=== PATIENT | male | born 1980 | race Caucasian/White ===

== ENCOUNTER 2016-09-25 13:49 | Inpatient (IN) | payer MEDICARE ==
[~2016-09-25] VITALS: Ht 177.8 cm; Wt 98.9 kg
[~2016-09-25 13:49] MED LIST: AMIT50TA PO; DIPH25CA58 PO; DOCU-27 PO; LIDO35.4 TP; OXYC10TA32 PO; OXYC30TA PO
[2016-09-25 16:54] LABS: BASO # 0.1 x10^3/uL (0.0-0.2); BASO % 1 % (0-3); EOS % 0 % (0-3); HEMATOCRIT 43.5 % (39.0-53.0); HEMOGLOBIN 14.3 g/dL (13.0-17.5); LYMPH # 1.2 x10^3/uL (1.0-4.8); LYMPH % 9 % (24-48); MEAN CORPUSCULAR HEMOGLOBIN 27 pg (25-35); MEAN CORPUSCULAR HGB CONC 33 g/dL (31-37); MEAN CORPUSCULAR VOLUME 83 fL (79-100); MONO % 7 % (0-9); NEUT % 84 % (31-73); PLATELET COUNT 331 x10^3/uL (140-400); RED BLOOD COUNT 5.24 x10^6/uL (4.30-5.70); RED CELL DISTRIBUTION WIDTH 14.4 % (11.5-14.5); WHITE BLOOD COUNT 13.2 x10^3/uL (4.0-11.0)
[2016-09-25 17:03] LABS: CALCIUM 9.8 mg/dL (8.5-10.1); GFR 83.6; POTASSIUM 3.8 mmol/L (3.5-5.1)
[2016-09-25] MEDS ORDERED: HYDROMORPHONE 2 MG/ML VIAL. IVP STA ×4 (17:07→18:36)
[2016-09-25 17:09] LABS: ALBUMIN 3.9 g/dL (3.4-5.0); ALBUMIN/GLOBULIN RATIO 0.9 (1.0-1.7); TOTAL BILIRUBIN 0.4 mg/dL (0.2-1.0); TOTAL PROTEIN 8.4 g/dL (6.4-8.2)
[2016-09-25] MEDS ORDERED: ONDANSETRON PF 4 MG/2 ML VIAL. IV ONE (17:15)
[2016-09-25] MEDS: ONDANSETRON PF 4 MG/2 ML VIAL. IV PRN (20:45)
[2016-09-25] MEDS: HYDROMORPHONE 2 MG/ML VIAL. IVP PRN (20:46)
--- NOTE | 2016-09-25 21:12 | ACF ---
Admission Forms Criteria ABDOMINAL PAIN Clinical Indications for Admission to Inpatient Care (Place 'X' for any and all applicable criteria): Admission is indicated for ANY ONE of the following(1)(2)(3)(4)(5): [X]I. Inpatient admission required rather than observation care (Also use Abdominal Pain: Observation Care, as appropriate) because of ANY ONE of the following: [ ]a) Severe pain requiring acute inpatient management [ ]b) Identification of etiology/finding that requires inpatient care (eg, aortic dissection, free air) [ ]c) Absent bowel sounds with complete ileus(6) [ ]d) Suspected toxic megacolon [ ]e) Severe electrolyte abnormalities requiring inpatient care [ ]f) High fever or infection requiring inpatient admission as indicated by ANY ONE of following(7)(8): [ ] i) Appropriate outpatient or observational care antimicrobial treatment unavailable, not effective, or not feasible [ ] ii) Documented bacteremia [ ] iii) Temperature > 104.9 degrees F (oral) [ ] iv) T >103.1 F (oral) or < 96.8 F(rectal) that does not respond to all emergency treatment measures [ ]g) Signs of intestinal obstruction [B] [ ]h) Hemodynamic instability [ ]i) IV fluid to replace significant ongoing losses (greater than 3 L/m2 per day) (12)(13) [ ]j) Percutaneous or open drainage (eg, abscess, biliary tract ) procedures [ ]k) Parenteral nutrition regimen that must be implemented on inpatient basis [X]l) Other condition,treatment or monitoring requiring inpatient admission. [ ]II. Peritoneal signs present [ ]III. Surgery needed that cannot be performed on an ambulatory basis. [ ]IV. Evaluation requires patient to not eat or drink for extended period ( eg, more than 24 hours). [ ]V. Contraindications and/or Inappropriate clinical situations for Observational Care in patients with abdominal pain, when ANY ONE of the following is required: [ ]a) Thorough evaluation is required to prevent catastrophic events due to delays in diagnosing (e.g.Mesenteric ischemia) 1,3 [ ]b) Patient with severe pathology or with chronic symptoms unlikely to improve in the ED stay (3) [ ]. General contraindications and/or Inappropriate clinical situations for Observational Care in patients with abdominal pain, when ANY ONE of the following is required: [ ]a) Prediction of prolongation of LOS based on ANY ONE of the following may be considered as a contraindication for observational care 2, 3, 4, 5, 6, 7, 8, 9, 10, 11 [ ]i) Age > 65 yrs. [ ]ii) Patient arriving by ambulance [ ]iii) Patient with high acuity [ ]iv) Patient requiring vital sign monitoring [ ]v) Patient on IV medication [ ]b) Systolic blood pressures 180mmHg 3,12 [ ]c) Patient with altered mental status including delirium and other alteration of consciousness, (3) [ ]d) Patient whose discharge disposition will be to a [facility] home or rehabilitation home should not be managed in Emergency Department Observation Unit. CMS rule requires 3 days hospital stay before such placement.3,13 [ ]e) Patient with failure to thrive due to broad array of etiologies 3,16,17 [ ]f) Inability to ambulate 3,14 Extended stay beyond goal length of stay may be needed for(2)(3): [ ]a) Persistent abdominal pain with suspected intra-abdominal process [ ]b) Diagnosed condition requiring continued stay (e.g., pancreatitis, complicated diverticulitis) [ ]c) Surgery (e.g., colectomy) The original [employer] content created by [employer] has been revised. The portions of the content which have been revised are identified through the use of italic text or in bold, and [facility] has neither reviewed nor approved the modified material.All other unmodified content is copyright [employer]. Please see references footnoted in the original [employer] edition 2016 Admission Criteria Met?: Yes JAMES RAMIREZ Sep 25, 2016 21:12
--- NOTE | 2016-09-25 21:15 | PHYS DOC ---
Past Medical History Past Medical History: Other Additional Past Medical Histor: MS, RSD Past Surgical History: Other Additional Past Surgical Histo: nerve blocks, TENS, Alcohol Use: None Drug Use: None Adult General Chief Complaint Chief Complaint: ABDOMINAL PAIN HPI HPI Patient is a 36 year old female with long history of multiple sclerosis and RSD presents complaining of intermittent, crampy lower abdominal pain for the past 2 weeks. He has had some nausea and vomiting. He says that he is having bowel movements much every day. He denies diarrhea or bloody stools. Denies fever. The pain seems to get worse after meals. He also complains of severe pain in his feet radiating up his lower extremities into his lower back which he describes as feeling like "explosions". He acuity cyst to his RSD. 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 He takes OxyContin and oxycodone (30 mg every 4 hours) at home. He also complains of intermittent swelling in his lower extremities which comes and goes over the past few weeks. He denies urinary complaints, cough, chest pain, shortness of breath, or any other acute complaints. Review of Systems Review of Systems Constitutional: Denies fever or chills Eyes: Denies change in visual acuity, redness, or eye pain HENT: Denies nasal congestion or sore throat Respiratory: Denies cough or shortness of breath Cardiovascular: Denies chest pain GI: Reports lower abdominal pain, nausea, and vomiting. Denies constipation, bloody stools, or diarrhea. : Denies dysuria or hematuria Musculoskeletal: Reports severe pains in his feet reading of his legs to his low back. Integument: Denies rash or skin lesions Neurologic: Denies headache, focal weakness. Current Medications Current Medications Current Medications Medications (Trade) Dose Ordered Sig/Juan A Start Time Stop Time Status Last Admin Dose Admin Hydromorphone HCl (Dilaudid) 4 mg 1X STAT 09/25/16 18:36 09/25/16 18:38 DC 09/25/16 18:54 4 MG Ondansetron HCl (Zofran) 8 mg 1X ONCE 09/25/16 17:15 09/25/16 17:16 DC 09/25/16 17:31 8 MG Allergies Allergies Allergies Coded Allergies Type Severity Reaction Last Updated Verified butorphanol Allergy Severe Shortness of Air 08/13/16 Yes ketorolac Allergy Severe Shortness of Air 08/13/16 Yes cephalexin Allergy Intermediate 07/18/16 Yes gabapentin Allergy Intermediate 07/18/16 Yes morphine Allergy Intermediate TOLERATES OXYCODONE 07/19/16 Yes Physical Exam Physical Exam Constitutional: Well developed, well nourished, no acute distress, non-toxic appearance. HENT: Normocephalic, atraumatic, bilateral external ears normal, oropharynx moist, no oral exudates, nose normal. Eyes: PERRLA, EOMI, conjunctiva normal, no discharge. Neck: Normal range of motion, no tenderness, supple, no stridor. Cardiovascular:Heart rate regular rhythm, no murmur Lungs & Thorax: Bilateral breath sounds clear to auscultation Abdomen: Mild generalized lower abdominal tenderness palpation. No rebound, guarding, rigidity, masses, or distention. Normal bowel sounds. Skin: Warm, dry, no erythema, no rash. Back: No tenderness, no CVA tenderness. Extremities: Mild edema bilateral lower legs and feet. Tenderness to palpation of the feet and legs. No redness of the skin. Neurologic: Alert and oriented X 3, normal motor function. Psychologic: Affect normal, judgement normal, mood normal. Current Patient Data Vital Signs Vital Signs Date Time Temp Pulse Resp B/P Pulse Ox O2 Delivery O2 Flow Rate FiO2 09/25/16 18:09 96 16 154/81 95 Room Air 09/25/16 15:50 97.9 97.9 Lab Values Laboratory Tests Test 09/25/16 16:40 White Blood Count 13.2x10^3/uL (4.0-11.0) H Red Blood Count 5.24x10^6/uL (4.30-5.70) Hemoglobin 14.3g/dL (13.0-17.5) Hematocrit 43.5% (39.0-53.0) Mean Corpuscular Volume 83fL (79-100) Mean Corpuscular Hemoglobin 27pg (25-35) Mean Corpuscular Hemoglobin Concent 33g/dL (31-37) Red Cell Distribution Width 14.4% (11.5-14.5) Platelet Count 331x10^3/uL (140-400) Neutrophils (%) (Auto) 84% (31-73) H Lymphocytes (%) (Auto) 9% (24-48) L Monocytes (%) (Auto) 7% (0-9) Eosinophils (%) (Auto) 0% (0-3) Basophils (%) (Auto) 1% (0-3) Neutrophils # (Auto) 11.0x10^3uL (1.8-7.7) H Lymphocytes # (Auto) 1.2x10^3/uL (1.0-4.8) Monocytes # (Auto) 0.9x10^3/uL (0.0-1.1) Eosinophils # (Auto) 0.0x10^3/uL (0.0-0.7) Basophils # (Auto) 0.1x10^3/uL (0.0-0.2) Sodium Level 139mmol/L (136-145) Potassium Level 3.8mmol/L (3.5-5.1) Chloride Level 101mmol/L (98-107) Carbon Dioxide Level 26mmol/L (21-32) Anion Gap 12 (6-14) Blood Urea Nitrogen 12mg/dL (8-26) Creatinine 1.0mg/dL (0.7-1.3) Estimated GFR (Cockcroft-Gault) 83.6 BUN/Creatinine Ratio 12 (6-20) Glucose Level 103mg/dL (70-99) H Calcium Level 9.8mg/dL (8.5-10.1) Total Bilirubin 0.4mg/dL (0.2-1.0) Aspartate Amino Transferase (AST) 49U/L (15-37) H Alanine Aminotransferase (ALT) 92U/L (16-63) H Alkaline Phosphatase 92U/L (46-116) Total Protein 8.4g/dL (6.4-8.2) H Albumin 3.9g/dL (3.4-5.0) Albumin/Globulin Ratio 0.9 (1.0-1.7) L Lipase 83U/L (73-393) Laboratory Tests 09/25/16 16:40 Laboratory Tests 09/25/16 16:40 EKG EKG [] Radiology/Procedures Radiology/Procedures [] Course & Med Decision Making Course & Med Decision Making Pertinent Labs and Imaging studies reviewed. (See chart for details) Vitals are stable and labs are unremarkable. He does have mild leukocytosis. Abdominal exam is benign. Patient has severe pain in his legs which he attributes to his reflex sympathetic dystrophy. He is requiring multiple doses of IV Dilaudid to control his pain. I'm going to be unable to send him home as he still has severe pain after 4 mg of IV Dilaudid. I discussed this case with Dr. Monroy who agreed to admit the patient for pain control. Dragon Disclaimer Dragon Disclaimer This electronic medical record was generated, in whole or in part, using a voice recognition dictation system. Departure Departure Impression: Primary Impression: Intractable pain Disposition: ADMITTED INPATIENT Admitting Physician: Other Condition: STABLE Referrals: UNKNOWN PCP NAME (PCP) PURVI BRASHER MD Sep 25, 2016 17:12
[2016-09-25] MEDS ORDERED: ALPR0.5T PO (21:31)
[2016-09-25] MEDS ORDERED: HYDROMORPHONE 2 MG/ML VIAL. IV ONE (21:55)
[2016-09-25] MEDS ORDERED: LORAZEPAM 2 MG/ML VIAL IV ONE ×2 (21:55→22:30)
[2016-09-25] MEDS ORDERED: HYDROMORPHONE STANDARD PCA 30 ML IV PRN (22:30)
[2016-09-25 23:28] VITALS: BP 134/98
[2016-09-26] MEDS ORDERED: DIPHENHYDRAMINE HCL 25 MG CAPSULE PO PRN (00:15)
[2016-09-26] MEDS: OXYCODONE IR 30 MG TABLET. PO SCH ×3 (00:51→12:00)
--- NOTE | 2016-09-26 01:08 | HP ---
ADMIT DATE: 09/25/2016 CHIEF COMPLAINT: Intractable pain. HISTORY OF PRESENT ILLNESS: The patient is a 36-year-old gentleman with 10+ year history of multiple sclerosis as well as RSD with recurrent pain episodes. 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 He has currently pain in his lower back, more on the right typical location for him. He takes a significant amount of oxycodone and OxyContin at home. This, however, did not help with the acute onset of severe pain. He states that the pain actually at this time started earlier today. It was severe, radiating down into both legs and upsetting his neuropathy severely. He has received copious amounts of Dilaudid in the Emergency Room with insufficient control of his symptoms, requesting antianxiety medications. Other symptoms include intermittent swelling of his lower extremities. Denies any other ongoing issues. PAST MEDICAL HISTORY: RSD, MS, has had nerve blocks as well as TENS unit in the past. FAMILY HISTORY: Noncontributory. SOCIAL HISTORY: Lives with his , friend and multiple children. Never smoked, no toxic habits. ALLERGIES: Multiple including butorphanol, cephalexin, gabapentin, ketorolac, and morphine. MEDICATIONS: MAR reconciled with home medications. REVIEW OF SYSTEMS: Positive for pain and swelling as per HPI. Rest of organ system review is negative. PHYSICAL EXAMINATION: VITAL SIGNS: From today show a blood pressure of 134/98, heart rate of 100, respiratory rate at 16. He is afebrile. GENERAL: This is a obese 36-year-old gentleman, alert and oriented, in mild distress during the interview secondary to pain, occasionally shifting position. HEENT: Shows no scleral icterus. NECK: Supple. LUNGS: Clear to auscultation bilaterally. HEART: Has regular rate and rhythm. BACK: Does not reveal any musculoskeletal abnormalities, tenderness to palpation, just right to the midline in his sacrum. ABDOMEN: Has positive bowel sounds, soft, nontender. EXTREMITIES: Show trace edema in the dorsi of both feet. SKIN: Warm, soft and dry without any rash. LABORATORY DATA: CBC from today shows a WBC of 13.2, hemoglobin 14.3, platelets of 331. Chemistries with normal BUN, creatinine and electrolytes. LFTs with AST, ALT of 49 and 92. Total protein at 8.4 with an albumin of 3.9, lipase within normal limits. IMAGING: None obtained in the ER. ASSESSMENT AND PLAN: The patient is a 36-year-old gentleman with significant pain issues related to MS as well as RSD. We will start him on a Dilaudid HYBRID [employer]IC with a basal rate here in the hospital. He will get another dose of Ativan IV and will have p.o. available down the road. His narcotic demand is significant probably mainly because he is conditioned with high doses at home. We will try and get the pain under control. Because of neurological issues, we will obtain consult with Dr. Farias. He has not seen a neurologist or is on any medications for his MS either. He does have abdominal pain with diarrhea, which is a chronic issue for him. We will monitor for the time being given significantly increased narcotic doses, we will hold off on any antidiarrheals at this time. We will continue all his other home medications for insomnia. His pain medication regimen at home is somewhat paradoxical with only 10 mg of OxyContin and 30 mg of OxyIR q.4h. This should be addressed by pain clinic. The patient apparently has been seen in one previously. SKYLA ALEXIS MD DR: CRYSTAL/nts JOB#: [id number] / [id number] LUDIN
[2016-09-26] MEDS: LORAZEPAM 1 MG TABLET. PO PRN ×4 (03:01→21:07)
[2016-09-26] MEDS: HYDROMORPHONE STANDARD PCA 30 ML IV PRN ×3 (03:07→09:40)
[2016-09-26 03:24] VITALS: BP 123/74
[2016-09-26 06:05] LABS: BASO % 1 % (0-3); EOS % 2 % (0-3); HEMATOCRIT 39.8 % (39.0-53.0); LYMPH % 20 % (24-48); MEAN CORPUSCULAR HEMOGLOBIN 27 pg (25-35); MEAN CORPUSCULAR HGB CONC 33 g/dL (31-37); MEAN CORPUSCULAR VOLUME 83 fL (79-100); MONO % 13 % (0-9); NEUT % 64 % (31-73); PLATELET COUNT 312 x10^3/uL (140-400); RED CELL DISTRIBUTION WIDTH 14.8 % (11.5-14.5); WHITE BLOOD COUNT 9.9 x10^3/uL (4.0-11.0)
[2016-09-26 06:31] LABS: ALBUMIN 3.3 g/dL (3.4-5.0); ALBUMIN/GLOBULIN RATIO 0.8 (1.0-1.7); GFR 83.6; POTASSIUM 3.9 mmol/L (3.5-5.1); TOTAL BILIRUBIN 0.5 mg/dL (0.2-1.0); TOTAL PROTEIN 7.4 g/dL (6.4-8.2)
[2016-09-26 07:00] VITALS: BP 126/92
[2016-09-26] MEDS: ONDANSETRON PF 4 MG/2 ML VIAL. IV PRN ×2 (07:08→20:24)
[2016-09-26] MEDS: GABAPENTIN 300 MG CAPSULE. PO SCH ×2 (09:14→20:14)
[2016-09-26] MEDS: LIDOCAINE 5% TOPICAL OINTMENT 35GM TUBE. TP SCH ×3 (09:15→20:14)
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
--- NOTE | 2016-09-26 12:21 | RAD ---
PROCEDURE MRI lumbar spine without contrast. HISTORY Low back pain, leg pain, numbness TECHNIQUE Sagittal axial T1 and T2 and sagittal STIR images were acquired of the lumbar spine. Contrast: None COMPARISON None FINDINGS There is some motion most notable for axial T2 sequence. Lumbar vertebral body stature and AP alignment are adequate. There is mild nonspecific edema of the posterior subcutaneous fat of lower back. There is negligible edema of the anterior superior corner of L3 more likely to be reactive/degenerative in etiology. Conus terminates normally T12-L1. Not fully included, there is likely some degenerative change of the sacrum near sacroiliac joints greater on the right. L3-4: There is mild buckling of the ligamentum flavum and mild facet hypertrophic change. Spinal canal is adequate. Minimal disc osteophyte complex results in minimal narrowing of the anterior, inferior right neural foramen distally, left neural foramen adequate. L4-5: There is mild buckling of the ligamentum flavum and mild to moderate facet hypertrophic change. Spinal canal is adequate. There is very minimal narrowing of the anterior, inferior neural foramina more distally by negligible disc osteophyte complex. L5-S1: Spinal canal and neural foramina are adequate. IMPRESSION 1. There is no significant lumbar spinal stenosis or neural foramina compromise. There is minimal spondylosis. There apparently some degenerative change of the sacrum near sacroiliac joints greater on the right. Electronically signed by: Mookie Wen MD (Sep 26, 2016 12:20:12)
[2016-09-26] MEDS ORDERED: GADOBUTROL 10 MMOL/10 ML VIAL IV ONE (12:30)
--- NOTE | 2016-09-26 13:10 | RAD ---
PROCEDURE MRI brain without and with contrast. HISTORY History multiple sclerosis, blurred vision, headaches, extremity weakness TECHNIQUE Sagittal and axial T1, axial T2, axial FLAIR, axial diffusion, axial gradient echo T2, and post-contrast axial and coronal T1 weighted images were acquired of the brain. Contrast: 9 cc Gadavist COMPARISON None FINDINGS There is variable motion degradation. There is no intra-axial mass effect, midline shift, extra-axial fluid collection. There is no restricted diffusion suggestive of a recent infarct or cytotoxic edema. There is apparently a small focus of nonenhancing T2 and FLAIR hyperintense signal abnormality of the left parietal deep white matter. Otherwise allowing for motion, no convincing focal signal abnormality is identified of the brain parenchyma. There is no nodular parenchymal or leptomeningeal enhancement. Ventricles, sulci, cisterns are within normal limits in size and configuration. There is preservation of the major arterial intracranial flow voids at the skull base other than nonvisualization of the right vertebral artery flow void which may be aplastic. There is slightly dysconjugate gaze. There is patchy moderate ethmoid air cell and mild left frontal sinus mucosal thickening. There is also mild, right greater than left maxillary sinus mucosal thickening and a 2.2 centimeter right maxillary sinus mucous retention cyst. Mastoid air cells are aerated. IMPRESSION 1. There is motion degradation. There is probably a small focus of nonenhancing T2 and FLAIR hyperintense signal abnormality of the left parietal deep white matter which is nonspecific, no other convincing intracranial abnormality allowing for motion. Electronically signed by: Mookie Wen MD (Sep 26, 2016 13:10:05)
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
[2016-09-26] MEDS ORDERED: ACETAMINOPHEN 325 MG TABLET. PO PRN (13:45)
[2016-09-26] MEDS: OXYCODONE ER 40 MG TAB.ER.12H. PO SCH ×2 (14:04→20:14)
[2016-09-26] MEDS: ENOXAPARIN 40 MG/0.4 ML DISP.SYRIN. SQ SCH (14:13)
[2016-09-26 15:00] VITALS: BP 154/100
[2016-09-26] MEDS: OXYCODONE IR 30 MG TABLET. PO PRN ×2 (15:54→20:14)
[2016-09-26] MEDS: HYDROMORPHONE 2 MG/ML VIAL. IVP PRN ×2 (18:40→21:11)
[2016-09-26 19:40] VITALS: BP 123/80
[2016-09-26] MEDS: AMITRIPTYLINE HCL 50 MG TABLET PO SCH (20:14)
[2016-09-26 22:28] VITALS: BP 138/76
[2016-09-27 02:26] VITALS: BP 128/80
[2016-09-27] MEDS: LORAZEPAM 1 MG TABLET. PO PRN (06:27)
[2016-09-27] MEDS: HYDROMORPHONE 2 MG/ML VIAL. IVP PRN ×7 (06:30→22:05)
[2016-09-27] MEDS: ONDANSETRON PF 4 MG/2 ML VIAL. IV PRN (06:34)
[2016-09-27 07:00] VITALS: BP 136/92
[2016-09-27] MEDS: OXYCODONE IR 30 MG TABLET. PO PRN (07:27)
[2016-09-27] MEDS: GABAPENTIN 300 MG CAPSULE. PO SCH ×2 (08:26→20:04)
[2016-09-27] MEDS: OXYCODONE ER 40 MG TAB.ER.12H. PO SCH ×2 (08:27→20:05)
[2016-09-27] MEDS: DOCUSATE SODIUM 100 MG CAPSULE PO SCH (08:27)
[2016-09-27] MEDS: LIDOCAINE 5% TOPICAL OINTMENT 35GM TUBE. TP SCH ×3 (08:28→20:04)
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
[2016-09-27 11:41] VITALS: BP 137/94
--- NOTE | 2016-09-27 12:21 | PDOC ---
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 MRI of brain and spine done, no acute findings 2. fu with neuro, 3. increase oxycontin to 40mg bid, oxycodone 20mg q4h prn 4. PTOT dvt ppx added gabapentin as per neuro, increased dose hope to dc tmr History of Present Illness History of Present Illness severe lower ext tenderness and very sensitive to touch, slightly better today pt takes only oxycodone at home, 20mg 5-6 times per day Vitals Vitals Vital Signs Date Time Temp Pulse Resp B/P Pulse Ox O2 Delivery O2 Flow Rate FiO2 09/27/16 11:44 16 Room Air 09/27/16 11:41 97.9 106 137/94 98 97.9 Physical Exam Physical Exam severe lower ext tenderness and very sensitive to touch General: Alert, Oriented X3, Cooperative Heart: Regular rate, Normal S1 Lungs: Clear Abdomen: Normal bowel sounds, Soft Extremities: No clubbing, No cyanosis Review of Systems Review of Systems no fever, chills, sob or chest pain Assessment and Plan Assessmemt and Plan Problems Medical Problems: (1) Intractable pain Status: Acute Problems: Comment Review of Relevant I have reviewed the following items mali (where applicable) has been applied. Labs Laboratory Tests Test 09/25/16 16:40 09/26/16 05:25 White Blood Count 13.2x10^3/uL (4.0-11.0) 9.9x10^3/uL (4.0-11.0) Red Blood Count 5.24x10^6/uL (4.30-5.70) 4.80x10^6/uL (4.30-5.70) Hemoglobin 14.3g/dL (13.0-17.5) 13.0g/dL (13.0-17.5) Hematocrit 43.5% (39.0-53.0) 39.8% (39.0-53.0) Mean Corpuscular Volume 83fL (79-100) 83fL (79-100) Mean Corpuscular Hemoglobin 27pg (25-35) 27pg (25-35) Mean Corpuscular Hemoglobin Concent 33g/dL (31-37) 33g/dL (31-37) Red Cell Distribution Width 14.4% (11.5-14.5) 14.8% (11.5-14.5) Platelet Count 331x10^3/uL (140-400) 312x10^3/uL (140-400) Neutrophils (%) (Auto) 84% (31-73) 64% (31-73) Lymphocytes (%) (Auto) 9% (24-48) 20% (24-48) Monocytes (%) (Auto) 7% (0-9) 13% (0-9) Eosinophils (%) (Auto) 0% (0-3) 2% (0-3) Basophils (%) (Auto) 1% (0-3) 1% (0-3) Neutrophils # (Auto) 11.0x10^3uL (1.8-7.7) 6.3x10^3uL (1.8-7.7) Lymphocytes # (Auto) 1.2x10^3/uL (1.0-4.8) 2.0x10^3/uL (1.0-4.8) Monocytes # (Auto) 0.9x10^3/uL (0.0-1.1) 1.3x10^3/uL (0.0-1.1) Eosinophils # (Auto) 0.0x10^3/uL (0.0-0.7) 0.2x10^3/uL (0.0-0.7) Basophils # (Auto) 0.1x10^3/uL (0.0-0.2) 0.0x10^3/uL (0.0-0.2) Sodium Level 139mmol/L (136-145) 139mmol/L (136-145) Potassium Level 3.8mmol/L (3.5-5.1) 3.9mmol/L (3.5-5.1) Chloride Level 101mmol/L (98-107) 103mmol/L (98-107) Carbon Dioxide Level 26mmol/L (21-32) 28mmol/L (21-32) Anion Gap 12 (6-14) 8 (6-14) Blood Urea Nitrogen 12mg/dL (8-26) 14mg/dL (8-26) Creatinine 1.0mg/dL (0.7-1.3) 1.0mg/dL (0.7-1.3) Estimated GFR (Cockcroft-Gault) 83.6 83.6 BUN/Creatinine Ratio 12 (6-20) 14 (6-20) Glucose Level 103mg/dL (70-99) 92mg/dL (70-99) Calcium Level 9.8mg/dL (8.5-10.1) 9.0mg/dL (8.5-10.1) Total Bilirubin 0.4mg/dL (0.2-1.0) 0.5mg/dL (0.2-1.0) Aspartate Amino Transf (AST/SGOT) 49U/L (15-37) 47U/L (15-37) Alanine Aminotransferase (ALT/SGPT) 92U/L (16-63) 90U/L (16-63) Alkaline Phosphatase 92U/L (46-116) 78U/L (46-116) Total Protein 8.4g/dL (6.4-8.2) 7.4g/dL (6.4-8.2) Albumin 3.9g/dL (3.4-5.0) 3.3g/dL (3.4-5.0) Albumin/Globulin Ratio 0.9 (1.0-1.7) 0.8 (1.0-1.7) Lipase 83U/L (73-393) Medications Current Medications Hydromorphone HCl (Dilaudid) 2 mg 1X STAT IVP Last administered on 09/25/16 17:32; Start 09/25/16 at 17:07; Stop 09/25/16 at 17:09; Status DC Ondansetron HCl (Zofran) 8 mg 1X ONCE IV Last administered on 09/25/16 17:31 ; Start 09/25/16 at 17:15; Stop 09/25/16 at 17:16; Status DC Hydromorphone HCl (Dilaudid) 2 mg 1X STAT IVP Last administered on 09/25/16 18:02; Start 09/25/16 at 17:50; Stop 09/25/16 at 17:52; Status DC Hydromorphone HCl (Dilaudid) 2 mg 1X STAT IVP ; Start 09/25/16 at 18:28; Stop 09/25/16 at 18:36; Status DC Hydromorphone HCl (Dilaudid) 4 mg 1X STAT IVP Last administered on 09/25/16 18:54; Start 09/25/16 at 18:36; Stop 09/25/16 at 18:38; Status DC Ondansetron HCl (Zofran) 4 mg PRN Q8HRS PRN IV NAUSEA/VOMITING Last administered on 09/26/16 07:08; Start 09/25/16 at 18:45; Stop 09/26/16 at 18:44 ; Status DC Hydromorphone HCl (Dilaudid) 4 mg PRN Q2HRS PRN IVP PAIN Last administered on 11:44; Start 09/25/16 at 18:45 Lorazepam (Ativan) 1 mg 1X ONCE IV Last administered on 09/25/16 22:00; Start 09/25/16 at 21:55; Stop 09/25/16 at 21:56; Status DC Hydromorphone HCl (Dilaudid) 4 mg 1X ONCE IV Last administered on 09/25/16 22 :01; Start 09/25/16 at 21:55; Stop 09/25/16 at 21:56; Status DC Lorazepam (Ativan) 1 mg 1X ONCE IV Last administered on 09/25/16 22:45; Start 09/25/16 at 22:30; Stop 09/25/16 at 22:31; Status DC Lorazepam 1 mg 1 mg PRN Q4HRS PRN PO ANXIETY / AGITATION Last administered on 06:27; Start 09/25/16 at 22:30 Hydromorphone HCl (Dilaudid Standard PIPE CLEANER) 30 ml @ 0 mls/hr CONT PRN PRN IV PROTOCOL Last administered on 09/26/16 00:09; Start 09/25/16 at 22:30; Stop at 02:38; Status DC Amitriptyline HCl (Elavil) 50 mg QHS PO Last administered on 09/26/16 20:14; Start 09/26/16 at 21:00 Diphenhydramine HCl (Benadryl) 25 mg PRN QHS PRN PO INSOMNIA; Start 09/26/16 at 00:15 Lidocaine (Xylocaine) 1 maggi TID TP Last administered on 09/27/16 08:28; Start 09/26/16 at 09:00 Oxycodone HCl 30 mg 30 mg Q4HRS PO ; Start 09/26/16 at 04:00; Stop 09/26/16 at 12:25; Status DC Hydromorphone HCl (Dilaudid Standard PIPE CLEANER) 30 ml @ 0 mls/hr CONT PRN PRN IV PROTOCOL Last administered on 09/26/16 09:40; Start 09/26/16 at 02:45; Stop at 12:25; Status DC Gabapentin (Neurontin) 300 mg BID PO Last administered on 09/27/16 08:26; Start 09/26/16 at 09:00 Oxycodone HCl (Roxicodone) 30 mg PRN Q4HRS PRN PO PAIN Last administered on 07:27; Start 09/26/16 at 13:00 Oxycodone HCl (Oxycontin) 40 mg Q12HR PO Last administered on 09/27/16 08:27; Start 09/26/16 at 13:00 Gadobutrol (Gadavist) 9 mmol 1X ONCE IV Last administered on 09/26/16 12:53; Start 09/26/16 at 12:30; Stop 09/26/16 at 12:31; Status DC Docusate Sodium (Colace) 100 mg DAILY PO Last administered on 09/27/16 08:27; Start 09/27/16 at 09:00 Acetaminophen (Tylenol) 650 mg PRN Q6HRS PRN PO MILD PAIN / TEMP; Start at 13:45 Ondansetron HCl (Zofran) 4 mg PRN Q6HRS PRN IV NAUSEA/VOMITING Last administered on 09/27/16 06:34; Start 09/26/16 at 13:45 Enoxaparin Sodium (Lovenox 40mg Syringe) 40 mg Q24H SQ Last administered on 14:13; Start 09/26/16 at 14:00 Active Scripts Active Lidocaine 35.44 Gm Oint...g. 1 Maggi TP TID Amitriptyline Hcl 50 Mg Tablet 50 Mg PO QHS Benadryl (Diphenhydramine Hcl) 25 Mg Capsule 25 Mg PO PRN QHS PRN Oxycontin (Oxycodone HCl) 10 Mg Tab.er.12h 20 Mg PO Q12HR Colace (Docusate Sodium) 100 Mg Capsule 100 Mg PO DAILY Oxycodone Hcl 30 Mg Tablet 30 Mg PO Q4HRS Reported Xanax (Alprazolam) 0.5 Mg Tablet 0.5 Mg PO TID PRN Vitals/I & O Vital Sign - Last 24 Hours 09/26/16 09/26/16 09/26/16 09/26/16 14:04 15:00 15:54 18:40 Temp 97.7 97.7 Pulse 105 Resp 20 20 B/P 154/100 Pulse Ox 93 95 95 O2 Delivery Room Air Room Air Room Air Room Air 09/26/16 09/26/16 09/26/16 09/26/16 19:40 20:01 20:14 20:14 Temp 98.1 98.1 Pulse 98 Resp 18 B/P 123/80 Pulse Ox 93 95 95 O2 Delivery Room Air Room Air Room Air Room Air 09/26/16 09/26/16 09/26/16 09/26/16 21:11 21:25 21:48 22:28 Temp 97.9 97.9 Pulse 82 Resp 16 B/P 138/76 Pulse Ox 95 95 95 100 O2 Delivery Room Air Room Air 09/27/16 09/27/16 09/27/16 09/27/16 00:21 02:26 06:30 07:00 Temp 98.1 98.6 98.1 98.6 Pulse 76 94 Resp 16 20 B/P 128/80 136/92 Pulse Ox 100 98 98 98 O2 Delivery Room Air Room Air Room Air Room Air 09/27/16 09/27/16 09/27/16 09/27/16 07:27 08:00 08:27 08:27 Resp 18 16 16 O2 Delivery Room Air Room Air Room Air Room Air 09/27/16 09/27/16 09/27/16 09/27/16 09:42 10:12 11:41 11:44 Temp 97.9 97.9 Pulse 106 Resp 16 16 22 16 B/P 137/94 Pulse Ox 98 O2 Delivery Room Air Room Air Room Air Room Air Intake and Output 09/26/16 09/26/16 09/27/16 15:00 23:00 07:00 Intake Total 700 ml 500 ml Output Total 1250 ml Balance -550 ml 500 ml TRACI SANDERS MD Sep 27, 2016 12:21
[2016-09-27] MEDS: OXYCODONE IR 5 MG TABLET. PO PRN ×2 (13:17→18:38)
[2016-09-27] MEDS: ENOXAPARIN 40 MG/0.4 ML DISP.SYRIN. SQ SCH (13:18)
[2016-09-27 15:01] VITALS: BP 130/91
[2016-09-27 19:30] VITALS: BP 147/107
[2016-09-27] MEDS: AMITRIPTYLINE HCL 50 MG TABLET PO SCH (20:04)
[2016-09-27 23:23] VITALS: BP 144/87
[2016-09-28] MEDS: HYDROMORPHONE 2 MG/ML VIAL. IVP PRN ×8 (02:57→23:39)
[2016-09-28] MEDS: OXYCODONE IR 5 MG TABLET. PO PRN ×6 (02:57→23:40)
[2016-09-28] MEDS: ONDANSETRON PF 4 MG/2 ML VIAL. IV PRN (03:02)
[2016-09-28] MEDS: LORAZEPAM 1 MG TABLET. PO PRN ×3 (03:02→20:38)
[2016-09-28 03:53] VITALS: BP 135/93
[2016-09-28 07:00] VITALS: BP 147/100
--- NOTE | 2016-09-28 08:13 | PDOC ---
PROGRESS NOTES Assessment Problems Medical Problems: (1) Intractable pain Status: Acute Diagnosis of multiple sclerosis in the past, MRI does not support this diagnosis Diagnosis of complex regional pain syndrome following electrical injury Chronic pain, lumbar MRI unremarkable Keep psychogenic features in mind The told us last night that gabapentin caused seizures. The patient says that he had tremors and not seizures and he strongly wants to retry the gabapentin. Plan I discussed risks, benefits, alternatives, and side effects and will continue him on gabapentin Aim for discharge tomorrow AM Current pain management I requested records from prior neurology workup, pending No immunosuppression for the possible multiple sclerosis Subjective pain better Objective Vital Signs Date Time Temp Pulse Resp B/P Pulse Ox O2 Delivery O2 Flow Rate FiO2 09/28/16 07:00 98.0 92 20 147/100 95 Room Air 98.0 Intake and Output 09/28/16 07:00 Intake Total 240 ml Output Total 600 ml Balance -360 ml Intake Oral 240 ml Output Urine Total 600 ml PHYSICAL EXAM Alert. Oriented to time, place and person. He appears to be in less pain PERRL. EOMI. CN: no focal findings. Muscle tone: normal. Muscle strength: 5/5 in the arms, 3/5 in the legs due to splinting DTR: 2+ Plantar reflex: Flexor Gait: not examined in bed. Sensory exam: Diffuse pinprick hypesthesia. No cerebellar signs elicited. Review of Relevant I have reviewed the following items mali (where applicable) has been applied. Labs Laboratory Tests Test 09/27/16 21:08 Glucose (Fingerstick) 128mg/dL (70-99) Laboratory Tests Test 09/27/16 21:08 Glucose (Fingerstick) 128mg/dL (70-99) Medications Current Medications Hydromorphone HCl (Dilaudid) 2 mg 1X STAT IVP Last administered on 09/25/16 17:32; Start 09/25/16 at 17:07; Stop 09/25/16 at 17:09; Status DC Ondansetron HCl (Zofran) 8 mg 1X ONCE IV Last administered on 09/25/16 17:31 ; Start 09/25/16 at 17:15; Stop 09/25/16 at 17:16; Status DC Hydromorphone HCl (Dilaudid) 2 mg 1X STAT IVP Last administered on 09/25/16 18:02; Start 09/25/16 at 17:50; Stop 09/25/16 at 17:52; Status DC Hydromorphone HCl (Dilaudid) 2 mg 1X STAT IVP ; Start 09/25/16 at 18:28; Stop 09/25/16 at 18:36; Status DC Hydromorphone HCl (Dilaudid) 4 mg 1X STAT IVP Last administered on 09/25/16 18:54; Start 09/25/16 at 18:36; Stop 09/25/16 at 18:38; Status DC Ondansetron HCl (Zofran) 4 mg PRN Q8HRS PRN IV NAUSEA/VOMITING Last administered on 09/26/16 07:08; Start 09/25/16 at 18:45; Stop 09/26/16 at 18:44 ; Status DC Hydromorphone HCl (Dilaudid) 4 mg PRN Q2HRS PRN IVP PAIN Last administered on 05:14; Start 09/25/16 at 18:45 Lorazepam (Ativan) 1 mg 1X ONCE IV Last administered on 09/25/16 22:00; Start 09/25/16 at 21:55; Stop 09/25/16 at 21:56; Status DC Hydromorphone HCl (Dilaudid) 4 mg 1X ONCE IV Last administered on 09/25/16 22 :01; Start 09/25/16 at 21:55; Stop 09/25/16 at 21:56; Status DC Lorazepam (Ativan) 1 mg 1X ONCE IV Last administered on 09/25/16 22:45; Start 09/25/16 at 22:30; Stop 09/25/16 at 22:31; Status DC Lorazepam 1 mg 1 mg PRN Q4HRS PRN PO ANXIETY / AGITATION Last administered on 03:02; Start 09/25/16 at 22:30 Hydromorphone HCl (Dilaudid Standard VEHICLE MAINTENANCE SUPERVISOR) 30 ml @ 0 mls/hr CONT PRN PRN IV PROTOCOL Last administered on 09/26/16 00:09; Start 09/25/16 at 22:30; Stop at 02:38; Status DC Amitriptyline HCl (Elavil) 50 mg QHS PO Last administered on 09/27/16 20:04; Start 09/26/16 at 21:00 Diphenhydramine HCl (Benadryl) 25 mg PRN QHS PRN PO INSOMNIA; Start 09/26/16 at 00:15 Lidocaine (Xylocaine) 1 maggi TID TP Last administered on 09/27/16 20:04; Start 09/26/16 at 09:00 Oxycodone HCl 30 mg 30 mg Q4HRS PO ; Start 09/26/16 at 04:00; Stop 09/26/16 at 12:25; Status DC Hydromorphone HCl (Dilaudid Standard VEHICLE MAINTENANCE SUPERVISOR) 30 ml @ 0 mls/hr CONT PRN PRN IV PROTOCOL Last administered on 09/26/16 09:40; Start 09/26/16 at 02:45; Stop at 12:25; Status DC Gabapentin (Neurontin) 300 mg BID PO Last administered on 09/27/16 20:04; Start 09/26/16 at 09:00; Stop 09/27/16 at 21:00; Status DC Oxycodone HCl (Roxicodone) 30 mg PRN Q4HRS PRN PO PAIN Last administered on 07:27; Start 09/26/16 at 13:00; Stop 09/27/16 at 12:21; Status DC Oxycodone HCl (Oxycontin) 40 mg Q12HR PO Last administered on 09/27/16 20:05; Start 09/26/16 at 13:00 Gadobutrol (Gadavist) 9 mmol 1X ONCE IV Last administered on 09/26/16 12:53; Start 09/26/16 at 12:30; Stop 09/26/16 at 12:31; Status DC Docusate Sodium (Colace) 100 mg DAILY PO Last administered on 09/27/16 08:27; Start 09/27/16 at 09:00 Acetaminophen (Tylenol) 650 mg PRN Q6HRS PRN PO MILD PAIN / TEMP; Start at 13:45 Ondansetron HCl (Zofran) 4 mg PRN Q6HRS PRN IV NAUSEA/VOMITING Last administered on 09/28/16 03:02; Start 09/26/16 at 13:45 Enoxaparin Sodium (Lovenox 40mg Syringe) 40 mg Q24H SQ Last administered on t 13:18; Start 09/26/16 at 14:00 Oxycodone HCl (Roxicodone) 20 mg PRN Q4HRS PRN PO PAIN Last administered on 06:53; Start 09/27/16 at 12:30 Gabapentin (Neurontin) 300 mg TID PO ; Start 09/28/16 at 09:00 Active Scripts Active Lidocaine 35.44 Gm Oint...g. 1 Maggi TP TID Amitriptyline Hcl 50 Mg Tablet 50 Mg PO QHS Benadryl (Diphenhydramine Hcl) 25 Mg Capsule 25 Mg PO PRN QHS PRN Oxycontin (Oxycodone HCl) 10 Mg Tab.er.12h 20 Mg PO Q12HR Colace (Docusate Sodium) 100 Mg Capsule 100 Mg PO DAILY Oxycodone Hcl 30 Mg Tablet 30 Mg PO Q4HRS Reported Xanax (Alprazolam) 0.5 Mg Tablet 0.5 Mg PO TID PRN Vitals/I & O Vital Sign - Last 24 Hours 09/27/16 09/27/16 09/27/16 09/27/16 08:27 08:27 09:42 11:41 Temp 97.9 97.9 Pulse 106 Resp 16 16 16 22 B/P 137/94 Pulse Ox 98 O2 Delivery Room Air Room Air Room Air Room Air 09/27/16 09/27/16 09/27/16 09/27/16 11:44 12:35 13:17 14:03 Resp 16 16 16 16 O2 Delivery Room Air Room Air Room Air Room Air 09/27/16 09/27/16 09/27/16 09/27/16 14:59 15:01 15:01 15:30 Temp 98.1 97.9 98.1 97.9 Pulse 98 Resp 14 22 B/P 130/ 130/91 Pulse Ox 98 97 97 O2 Delivery Room Air Room Air 09/27/16 09/27/16 09/27/16 09/27/16 17:37 17:56 18:38 19:30 Temp 98.1 98.1 Pulse 99 Resp 18 16 16 18 B/P 147/107 Pulse Ox 96 O2 Delivery Room Air Room Air Room Air Room Air 09/27/16 09/27/16 09/27/16 09/27/16 20:00 20:05 20:05 22:05 Resp 18 18 16 O2 Delivery Room Air Room Air Room Air Room Air 09/27/16 09/28/16 09/28/16 09/28/16 23:23 02:57 02:57 03:53 Temp 98.1 98.0 98.1 98.0 Pulse 84 89 Resp 18 18 B/P 144/87 135/93 Pulse Ox 96 93 O2 Delivery Room Air Room Air Room Air Room Air 09/28/16 09/28/16 09/28/16 05:14 06:53 07:00 Temp 98.0 98.0 Pulse 92 Resp 20 B/P 147/100 Pulse Ox 95 O2 Delivery Room Air Room Air Room Air Intake and Output 09/27/16 09/27/16 09/28/16 15:00 23:00 07:00 Intake Total 0 ml 240 ml Output Total 600 ml Balance 0 ml -360 ml ADITYA TAYLOR MD Sep 28, 2016 08:13
[2016-09-28] MEDS: GABAPENTIN 300 MG CAPSULE. PO SCH ×3 (08:24→20:26)
[2016-09-28] MEDS: DOCUSATE SODIUM 100 MG CAPSULE PO SCH (08:25)
[2016-09-28] MEDS: OXYCODONE ER 40 MG TAB.ER.12H. PO SCH ×2 (08:25→20:27)
[2016-09-28] MEDS: LIDOCAINE 5% TOPICAL OINTMENT 35GM TUBE. TP SCH ×3 (08:25→20:27)
[2016-09-28 11:00] VITALS: BP 139/91
--- NOTE | 2016-09-28 13:16 | PDOC ---
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 MRI of brain and spine done, no acute findings 2. fu with neuro, who wants pt go home tmr 3. increase oxycontin to 40mg bid, oxycodone 20mg q4h prn 4. PTOT dvt ppx added gabapentin as per neuro, increased dose hope to dc tmr SW involve, if cannot go home tmr, shooting for Rehab History of Present Illness History of Present Illness severe lower ext tenderness and very sensitive to touch, slightly better today, refuse to go home pt takes only oxycodone at home, 20mg 5-6 times per day Vitals Vitals Vital Signs Date Time Temp Pulse Resp B/P Pulse Ox O2 Delivery O2 Flow Rate FiO2 09/28/16 12:21 18 95 Room Air 09/28/16 11:00 98.3 111 139/91 98.3 Physical Exam Physical Exam severe lower ext tenderness and very sensitive to touch General: Alert, Oriented X3, Cooperative Heart: Regular rate, Normal S1 Lungs: Clear Abdomen: Normal bowel sounds, Soft Extremities: No clubbing, No cyanosis Labs LABS Laboratory Tests Test 09/27/16 21:08 Glucose (Fingerstick) 128mg/dL (70-99) Review of Systems Review of Systems no fever, chills, sob or chest pain Assessment and Plan Assessmemt and Plan Problems Medical Problems: (1) Intractable pain Status: Acute Problems: Comment Review of Relevant I have reviewed the following items mali (where applicable) has been applied. Labs Laboratory Tests Test 09/27/16 21:08 Glucose (Fingerstick) 128mg/dL (70-99) Laboratory Tests Test 09/27/16 21:08 Glucose (Fingerstick) 128mg/dL (70-99) Medications Current Medications Hydromorphone HCl (Dilaudid) 2 mg 1X STAT IVP Last administered on 09/25/16 17:32; Start 09/25/16 at 17:07; Stop 09/25/16 at 17:09; Status DC Ondansetron HCl (Zofran) 8 mg 1X ONCE IV Last administered on 09/25/16 17:31 ; Start 09/25/16 at 17:15; Stop 09/25/16 at 17:16; Status DC Hydromorphone HCl (Dilaudid) 2 mg 1X STAT IVP Last administered on 09/25/16 18:02; Start 09/25/16 at 17:50; Stop 09/25/16 at 17:52; Status DC Hydromorphone HCl (Dilaudid) 2 mg 1X STAT IVP ; Start 09/25/16 at 18:28; Stop 09/25/16 at 18:36; Status DC Hydromorphone HCl (Dilaudid) 4 mg 1X STAT IVP Last administered on 09/25/16 18:54; Start 09/25/16 at 18:36; Stop 09/25/16 at 18:38; Status DC Ondansetron HCl (Zofran) 4 mg PRN Q8HRS PRN IV NAUSEA/VOMITING Last administered on 09/26/16 07:08; Start 09/25/16 at 18:45; Stop 09/26/16 at 18:44 ; Status DC Hydromorphone HCl (Dilaudid) 4 mg PRN Q2HRS PRN IVP PAIN Last administered on 11:49; Start 09/25/16 at 18:45 Lorazepam (Ativan) 1 mg 1X ONCE IV Last administered on 09/25/16 22:00; Start 09/25/16 at 21:55; Stop 09/25/16 at 21:56; Status DC Hydromorphone HCl (Dilaudid) 4 mg 1X ONCE IV Last administered on 09/25/16 22 :01; Start 09/25/16 at 21:55; Stop 09/25/16 at 21:56; Status DC Lorazepam (Ativan) 1 mg 1X ONCE IV Last administered on 09/25/16 22:45; Start 09/25/16 at 22:30; Stop 09/25/16 at 22:31; Status DC Lorazepam 1 mg 1 mg PRN Q4HRS PRN PO ANXIETY / AGITATION Last administered on 03:02; Start 09/25/16 at 22:30 Hydromorphone HCl (Dilaudid Standard BUSINESS STRATEGIST) 30 ml @ 0 mls/hr CONT PRN PRN IV PROTOCOL Last administered on 09/26/16 00:09; Start 09/25/16 at 22:30; Stop at 02:38; Status DC Amitriptyline HCl (Elavil) 50 mg QHS PO Last administered on 09/27/16 20:04; Start 09/26/16 at 21:00 Diphenhydramine HCl (Benadryl) 25 mg PRN QHS PRN PO INSOMNIA; Start 09/26/16 at 00:15 Lidocaine (Xylocaine) 1 maggi TID TP Last administered on 09/28/16 08:25; Start 09/26/16 at 09:00 Oxycodone HCl 30 mg 30 mg Q4HRS PO ; Start 09/26/16 at 04:00; Stop 09/26/16 at 12:25; Status DC Hydromorphone HCl (Dilaudid Standard BUSINESS STRATEGIST) 30 ml @ 0 mls/hr CONT PRN PRN IV PROTOCOL Last administered on 09/26/16 09:40; Start 09/26/16 at 02:45; Stop at 12:25; Status DC Gabapentin (Neurontin) 300 mg BID PO Last administered on 09/27/16 20:04; Start 09/26/16 at 09:00; Stop 09/27/16 at 21:00; Status DC Oxycodone HCl (Roxicodone) 30 mg PRN Q4HRS PRN PO PAIN Last administered on 07:27; Start 09/26/16 at 13:00; Stop 09/27/16 at 12:21; Status DC Oxycodone HCl (Oxycontin) 40 mg Q12HR PO Last administered on 09/28/16 08:25; Start 09/26/16 at 13:00 Gadobutrol (Gadavist) 9 mmol 1X ONCE IV Last administered on 09/26/16 12:53; Start 09/26/16 at 12:30; Stop 09/26/16 at 12:31; Status DC Docusate Sodium (Colace) 100 mg DAILY PO Last administered on 09/28/16 08:25; Start 09/27/16 at 09:00 Acetaminophen (Tylenol) 650 mg PRN Q6HRS PRN PO MILD PAIN / TEMP; Start at 13:45 Ondansetron HCl (Zofran) 4 mg PRN Q6HRS PRN IV NAUSEA/VOMITING Last administered on 09/28/16 03:02; Start 09/26/16 at 13:45 Enoxaparin Sodium (Lovenox 40mg Syringe) 40 mg Q24H SQ Last administered on 13:18; Start 09/26/16 at 14:00 Oxycodone HCl (Roxicodone) 20 mg PRN Q4HRS PRN PO PAIN Last administered on 11:01; Start 09/27/16 at 12:30 Gabapentin (Neurontin) 300 mg TID PO Last administered on 09/28/16 08:24; Start 09/28/16 at 09:00 Active Scripts Active Lidocaine 35.44 Gm Oint...g. 1 Maggi TP TID Amitriptyline Hcl 50 Mg Tablet 50 Mg PO QHS Benadryl (Diphenhydramine Hcl) 25 Mg Capsule 25 Mg PO PRN QHS PRN Oxycontin (Oxycodone HCl) 10 Mg Tab.er.12h 20 Mg PO Q12HR Colace (Docusate Sodium) 100 Mg Capsule 100 Mg PO DAILY Oxycodone Hcl 30 Mg Tablet 30 Mg PO Q4HRS Reported Xanax (Alprazolam) 0.5 Mg Tablet 0.5 Mg PO TID PRN Vitals/I & O Vital Sign - Last 24 Hours 09/27/16 09/27/16 09/27/16 09/27/16 13:17 14:59 15:01 15:01 Temp 98.1 97.9 98.1 97.9 Pulse 98 Resp 16 14 22 B/P 130/ 130/91 Pulse Ox 98 97 O2 Delivery Room Air Room Air Room Air 09/27/16 09/27/16 09/27/16 09/27/16 17:37 18:38 19:30 20:00 Temp 98.1 98.1 Pulse 99 Resp 18 16 18 B/P 147/107 Pulse Ox 96 O2 Delivery Room Air Room Air Room Air Room Air 09/27/16 09/27/16 09/27/16 09/27/16 20:05 20:05 22:05 23:23 Temp 98.1 98.1 Pulse 84 Resp 18 18 16 18 B/P 144/87 Pulse Ox 96 O2 Delivery Room Air Room Air Room Air Room Air 09/28/16 09/28/16 09/28/16 09/28/16 02:57 02:57 03:53 05:14 Temp 98.0 98.0 Pulse 89 Resp 18 B/P 135/93 Pulse Ox 93 O2 Delivery Room Air Room Air Room Air Room Air 09/28/16 09/28/16 09/28/16 09/28/16 06:53 07:00 08:00 08:25 Temp 98.0 98.0 Pulse 92 Resp B/P 147/100 Pulse Ox 95 95 O2 Delivery Room Air Room Air Room Air Room Air 09/28/16 09/28/16 09/28/16 09/28/16 09:22 11:00 11:01 11:49 Temp 98.3 98.3 Pulse 111 Resp 18 B/P 139/91 Pulse Ox 95 94 95 95 O2 Delivery Room Air Room Air Room Air Room Air 09/28/16 09/28/16 09/28/16 12:21 12:21 12:21 Resp 18 Pulse Ox 95 95 95 O2 Delivery Room Air Room Air Room Air Intake and Output 09/27/16 09/27/16 09/28/16 15:00 23:00 07:00 Intake Total 0 ml 240 ml Output Total 600 ml Balance 0 ml -360 ml TRACI SANDERS MD Sep 28, 2016 13:16
[2016-09-28] MEDS: ENOXAPARIN 40 MG/0.4 ML DISP.SYRIN. SQ SCH (13:51)
[2016-09-28 15:00] VITALS: BP 152/94
[2016-09-28 19:30] VITALS: BP 141/95
[2016-09-28] MEDS: AMITRIPTYLINE HCL 50 MG TABLET PO SCH (20:26)
[2016-09-28 23:00] VITALS: BP 139/82
[2016-09-29 03:29] VITALS: BP 135/79
[2016-09-29] MEDS: OXYCODONE IR 5 MG TABLET. PO PRN ×5 (04:55→22:59)
[2016-09-29] MEDS: HYDROMORPHONE 2 MG/ML VIAL. IVP PRN ×6 (04:56→21:27)
[2016-09-29] MEDS: LORAZEPAM 1 MG TABLET. PO PRN ×4 (05:05→21:27)
[2016-09-29 07:00] VITALS: BP 150/89
[2016-09-29] MEDS: GABAPENTIN 300 MG CAPSULE. PO SCH ×3 (08:41→20:30)
[2016-09-29] MEDS: DOCUSATE SODIUM 100 MG CAPSULE PO SCH (08:42)
[2016-09-29] MEDS: OXYCODONE ER 40 MG TAB.ER.12H. PO SCH ×2 (08:42→20:30)
[2016-09-29] MEDS: LIDOCAINE 5% TOPICAL OINTMENT 35GM TUBE. TP SCH ×3 (09:01→21:28)
[2016-09-29 10:43] VITALS: BP 148/94
[2016-09-29] MEDS: ENOXAPARIN 40 MG/0.4 ML DISP.SYRIN. SQ SCH (14:02)
[2016-09-29 14:46] VITALS: BP 135/89
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
[2016-09-29 19:54] VITALS: BP 138/85
[2016-09-29] MEDS: AMITRIPTYLINE HCL 50 MG TABLET PO SCH (20:29)
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
[2016-09-29 23:46] VITALS: BP 129/80
[2016-09-30 03:21] VITALS: BP 134/83
[2016-09-30] MEDS: OXYCODONE IR 5 MG TABLET. PO PRN ×5 (04:37→20:58)
[2016-09-30] MEDS: HYDROMORPHONE 2 MG/ML VIAL. IVP PRN ×6 (04:37→23:59)
[2016-09-30] MEDS: GABAPENTIN 300 MG CAPSULE. PO SCH ×3 (07:45→20:58)
[2016-09-30] MEDS: DOCUSATE SODIUM 100 MG CAPSULE PO SCH (07:45)
[2016-09-30] MEDS: OXYCODONE ER 40 MG TAB.ER.12H. PO SCH ×2 (07:45→20:58)
[2016-09-30] MEDS: LORAZEPAM 1 MG TABLET. PO PRN ×2 (07:45→22:47)
[2016-09-30 08:42] VITALS: BP 139/77
[2016-09-30] MEDS: LIDOCAINE 5% TOPICAL OINTMENT 35GM TUBE. TP SCH ×3 (08:45→20:58)
[2016-09-30 11:52] VITALS: BP 147/100
[2016-09-30] MEDS: ENOXAPARIN 40 MG/0.4 ML DISP.SYRIN. SQ SCH (12:52)
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
[2016-09-30 15:28] VITALS: BP 148/97
[2016-09-30] MEDS ORDERED: HYDROMORPHONE 2 MG/ML VIAL. IVP PRN (18:45)
[2016-09-30 19:40] VITALS: BP 163/104
[2016-09-30] MEDS: AMITRIPTYLINE HCL 50 MG TABLET PO SCH (20:58)
[2016-09-30 23:56] VITALS: BP 132/93
[2016-10-01] MEDS: OXYCODONE IR 5 MG TABLET. PO PRN ×2 (02:54→09:51)
[2016-10-01 02:56] VITALS: BP 130/85
[2016-10-01] MEDS: HYDROMORPHONE 2 MG/ML VIAL. IVP PRN (04:25)
[2016-10-01] MEDS: LORAZEPAM 1 MG TABLET. PO PRN (04:30)
[2016-10-01 07:00] VITALS: BP 148/89
[2016-10-01] MEDS: GABAPENTIN 300 MG CAPSULE. PO SCH (08:03)
[2016-10-01] MEDS: LIDOCAINE 5% TOPICAL OINTMENT 35GM TUBE. TP SCH (08:04)
[2016-10-01] MEDS: DOCUSATE SODIUM 100 MG CAPSULE PO SCH (08:04)
[2016-10-01] MEDS: OXYCODONE ER 40 MG TAB.ER.12H. PO SCH (08:04)
[2016-10-01 11:00] VITALS: BP 150/96
[2016-10-01] MEDS ORDERED: GABA-586 PO (11:49)
[2016-10-01] MEDS ORDERED: ONDANSETRON ODT 4 MG TAB.RAPDIS PO ONE (12:15)
--- NOTE | 2016-10-01 16:00 | PDOC ---
PROGRESS NOTES Assessment Assessment IMPRESSION: Price pain syndrome per history. Narcotic dependence. GI symptoms. Abdominal pain. Hx of MS, but no imagine findings at the present time. RECOMMENDATIONS/PLAN: Medical treatment. FU with PCP. PAST MEDICAL AND SURGICAL HISTORY: Please see H&P ALLERGY: Reviewed. MEDICATIONS: Refer to MAR REVIEW OF SYSTEMS: Constitutional: No malnutrition, weight loss, cachexia. Head: No traumatic brain or head injury. Skin: No edema, or rash. Ear: No infection, tinnitus. Eyes: No vision loss, or diplopia. Nose: No bleeding or purulent discharges. Hearing: No hearing decrease. Neck: No injury. Cardiac: No VT, arrhythmia Pulmonary: No COPD. GI: Abdominal pain. Urinary/genital: No dysuria, hematuria, incontinence, urinary retention. Endocrine: No cousin face, craniofacial dysmorphism, polydactyly. Skeletomuscular: No muscular atrophy, deformity. Neurological: see HP. Psychiatric: Denies drug use/abuse. Otherwise, not [id number] review of systems. PHYSICAL EXAMINATION: General appearance in no acute distress. HEENT: Normocephalic and nontraumatic. Eyes, nose, ears, and throat are unremarkable. Hearing decrease. Neck is supple. No lymphadenopathy. No bruits are heard over the carotid artery. No Crepitus. Cardiovascular: S1, S2, regular rate and rhythm. Pulmonary: Clear to auscultation bilaterally. Abdomen: Bowel sounds are positive. Extremities: No rash, lesions. mild left foot edema noted. No restriction of range of motion NEUROLOGICAL EXAMINATION: Alert. Oriented to time, place and person. PERRL. EOMI. CN: no focal findings. Muscle tone: within normal. Muscle strength: 5 DTR: 2 Plantar reflex: not examed due to wrapped feet Gait: not examined in bed. Sensory exam: no abnormal findings. No cerebellar signs elicited. F-T-N test accurate. Objective Objective Vital Signs Date Time Temp Pulse Resp B/P Pulse Ox O2 Delivery O2 Flow Rate FiO2 10/01/16 12:05 18 95 Room Air 10/01/16 11:00 97.9 93 150/96 97.9 Intake and Output 10/01/16 07:00 Intake Total 1410 ml Output Total 400 ml Balance 1010 ml Intake Oral 1410 ml Output Urine Total 400 ml Vitals Signs Vitals VS - Last 72 Hours, by Label Date Time Temp Pulse Resp B/P Pulse Ox O2 Delivery O2 Flow Rate FiO2 10/01/16 12:05 18 95 Room Air 10/01/16 11:00 97.9 93 20 150/96 95 Room Air 97.9 10/01/16 10:56 18 93 Room Air 10/01/16 09:51 18 93 Room Air 10/01/16 08:04 18 93 Room Air 10/01/16 08:00 Room Air 10/01/16 07:00 97.9 93 20 148/89 94 Room Air 97.9 10/01/16 04:55 Room Air 10/01/16 04:25 Room Air 10/01/16 02:56 97.5 95 20 130/85 93 Room Air 97.5 10/01/16 02:54 Room Air 09/30/16 23:59 Room Air 09/30/16 23:56 97.9 98 16 132/93 94 Room Air 97.9 09/30/16 21:27 Room Air 09/30/16 20:58 Room Air 09/30/16 20:58 Room Air 09/30/16 20:57 Room Air 09/30/16 20:00 Room Air 09/30/16 19:40 98.1 101 16 163/104 95 Room Air 98.1 09/30/16 17:23 16 93 09/30/16 16:53 16 93 Room Air 09/30/16 16:52 16 93 Room Air 09/30/16 15:28 97.9 114 17 148/97 93 Room Air 97.9 09/30/16 12:52 16 95 Room Air 09/30/16 12:51 16 95 Room Air 09/30/16 11:52 98.1 111 16 147/100 95 Room Air 98.1 09/30/16 08:42 98.6 87 16 139/77 95 Room Air 98.6 09/30/16 08:41 18 92 Room Air 09/30/16 08:41 16 92 Room Air 09/30/16 08:00 Room Air 09/30/16 07:45 16 92 Room Air 09/30/16 07:00 Medication Medications Current Medications Hydromorphone HCl (Dilaudid) 1 mg PRN Q4HRS PRN IVP PAIN; Start 09/30/16 at 18: 45; Stop 1/22/17 at 18:45; Status DC Hydromorphone HCl (Dilaudid) 2 mg PRN Q4HRS PRN IVP severe pain Last administered on 10/01/16 04:25; Start 09/30/16 at 23:30; Stop 10/01/16 at 13:32 ; Status DC Ondansetron HCl (Zofran Odt) 4 mg 1X ONCE PO Last administered on 10/01/16 12 :05; Start 10/01/16 at 12:15; Stop 10/01/16 at 12:16; Status DC Comment Review of Relevant I have reviewed the following items mali (where applicable) has been applied. HITESH REID MD Oct 01, 2016 16:00
== END 2016-10-01 13:15 | disposition home or self-care (01) | DRG 74 ==
LOC: ER 13:49 → 6 SOUTH 18:36
PROVIDERS: ADMIT Internal Medicine Hematology & Oncology; ATTEND Internal Medicine Hematology & Oncology
DX: G90.59 Complex regional pain syndrome I of other specified site (principal); F11.20 Opioid dependence, uncomplicated; K29.70 Gastritis, unspecified, without bleeding; G89.11 Acute pain due to trauma; G35 Multiple sclerosis; F43.10 Post-traumatic stress disorder, unspecified; G47.00 Insomnia, unspecified; G62.9 Polyneuropathy, unspecified; I25.10 Atherosclerotic heart disease of native coronary artery without angina pectoris; M06.9 Rheumatoid arthritis, unspecified; F41.9 Anxiety disorder, unspecified; Z82.49 Family history of ischemic heart disease and other diseases of the circulatory system; Z83.3 Family history of diabetes mellitus; Z88.1 Allergy status to other antibiotic agents; Z88.5 Allergy status to narcotic agent; Z88.8 Allergy status to other drugs, medicaments and biological substances
CPT/HCPCS: 36415; 70553; 72148; 80053; 82947; 83690; 85027; 96374; 96375; 96376; A9585; J1170; J1650; J2060; J2405; Q0162; 97116; 97530; 97535; 99285-25

== ENCOUNTER 2016-11-11 20:53 | Inpatient (IN) | payer MEDICARE ==
[~2016-11-11] VITALS: Ht 177.8 cm; Wt 113.4 kg
[~2016-11-11 20:53] MED LIST changes: +ALPR0.5T PO; +CYCL10TA2 PO; +GABA-586 PO; +OXYC-323 PO
[2016-11-11] MEDS: HYDROMORPHONE 2 MG/ML VIAL. IV PRN ×3 (21:27→22:31)
[2016-11-11] MEDS ORDERED: IV NORMAL SALINE 500ML BAG 500 ML IV ONE (21:45)
[2016-11-11] MEDS ORDERED: ONDANSETRON PF 4 MG/2 ML VIAL. IV ONE (21:45)
--- NOTE | 2016-11-11 22:37 | PHYS DOC ---
Past Medical History Past Medical History: Other Additional Past Medical Histor: MS, RSD Past Surgical History: Other Additional Past Surgical Histo: nerve blocks, TENS, Alcohol Use: None Drug Use: None Adult General Chief Complaint Chief Complaint: LOWER EXTREMITY SWELLING HPI HPI 28-year-old male presenting to the emergency department today with bilateral lower extremity pain that is acute on chronic. He reports having a diagnosis of reflex sympathetic dystrophy after having an electrocution event back in 1999. Since then he has been having severe pain in his feet. He currently takes 20 mg of oxycodone approximately 6 times a day. He gets his medications prescribed every week by his primary care physician. However today his pain was unrelieved by the medications. His pain is sharp severe nonradiating and in both lower legs. No associated symptoms present. He denies any numbness weakness tingling. He denies fecal or urinary incontinence or perineal paresthesias. Review of systems is negative for chest pain shortness of breath nausea vomiting. All other review of systems is negative unless otherwise noted in history of present illness. Review of Systems Review of Systems SEE ABOVE. Current Medications Current Medications Current Medications Medications (Trade) Dose Ordered Sig/Juan A Start Time Stop Time Status Last Admin Dose Admin Fentanyl Citrate (Fentanyl 2ml Vial) 50 mcg PRN Q30MIN PRN 11/11/16 22:45 Hydromorphone HCl (Dilaudid) 1 mg PRN Q30MIN PRN 11/11/16 21:30 11/11/16 22:32 DC 11/11/16 22:31 1 MG Ondansetron HCl (Zofran) 4 mg PRN Q8HRS PRN 11/11/16 22:45 11/12/16 22:44 Ondansetron HCl 4 mg 4 mg 1X ONCE 11/11/16 21:45 11/11/16 21:46 DC 11/11/16 21:26 4 MG Sodium Chloride (Iv Sodium Chloride 0.9% 500ml Bag) 500 ml @ 500 mls/hr 1X ONCE 11/11/16 21:45 11/11/16 22:44 DC 11/11/16 21:26 500 MLS/HR Allergies Allergies Allergies Coded Allergies Type Severity Reaction Last Updated Verified butorphanol Allergy Severe Shortness of Air 08/13/16 Yes ketorolac Allergy Severe Shortness of Air 08/13/16 Yes cephalexin Allergy Intermediate 07/18/16 Yes morphine Allergy Intermediate TOLERATES OXYCODONE 07/19/16 Yes Physical Exam Physical Exam Constitutional: Well developed, well nourished, non-toxic appearance. Patient appears to be in a moderate amount of pain. HENT: Normocephalic, atraumatic, bilateral external ears normal, oropharynx moist, no oral exudates, nose normal. [] Eyes: PERRLA, EOMI, conjunctiva normal, no discharge. Neck: Normal range of motion, no tenderness, supple, no stridor. [] Cardiovascular:Heart rate regular rhythm, no murmur Lungs & Thorax: Bilateral breath sounds clear to auscultation [] Abdomen: Bowel sounds normal, soft, no tenderness, no masses, no pulsatile masses. Skin: Warm, dry, no erythema, no rash. [] Back: No tenderness, no CVA tenderness. Extremities: Patient has mild swelling of the lower extremities bilaterally. No evidence of cellulitis. Hyperalgesia present. Normal sensation of the foot. Palpable pulse. 5 out of 5 strength. Upper extremities are unremarkable nontender with normal range of motion. Neurologic: Alert and oriented X 3, normal motor function, normal sensory function, no focal deficits noted. [] Psychologic: Affect normal, judgement normal, mood normal. [] Current Patient Data Vital Signs Vital Signs Date Time Temp Pulse Resp B/P Pulse Ox O2 Delivery O2 Flow Rate FiO2 11/11/16 22:31 30 97 11/11/16 21:59 Room Air 11/11/16 21:05 98.4 119 134/92 98.4 EKG EKG [] Radiology/Procedures Radiology/Procedures [] Course & Med Decision Making Course & Med Decision Making Pertinent Labs and Imaging studies reviewed. (See chart for details) [] 28-year-old male presenting to the emergency department today with pain in his legs bilaterally. Afebrile. Tachycardic likely secondary to pain. Tachypnea likely representing his pain as well. Otherwise vital signs unremarkable. Pertinent physical exam shows a neurovascular intact lower extremities bilaterally. Presentation not suggestive of cauda equina syndrome. The patient' s pain was treated in the emergency department however unfortunately his pain was not able to be controlled. He was subsequently admitted for intractable pain. Dragon Disclaimer Dragon Disclaimer This electronic medical record was generated, in whole or in part, using a voice recognition dictation system. Departure Departure Impression: Primary Impression: Reflex sympathetic dystrophy of both lower extremities Disposition: 01 HOME, SELF-CARE Condition: STABLE Referrals: UNKNOWN PCP NAME (PCP) CODIE SMITH MD Additional Instructions: Thank you for allowing us to participate in your care today. Followup with your primary care physician in 3 days if your symptoms do not improve. If you do not have a primary care provider you can ask for a list of our primary care providers. Return to the emergency department you have any new or concerning findings. This should be evaluated by the primary care physician and any necessary consulting services for continued management within a few days after discharge. Return to emergency room if you have any new or concerning symptoms including but not limited to fever, chills, nausea, vomiting, intractable pain, any new rashes, chest pain, shortness of air, uncontrolled bleeding, difficulty breathing, and/or vision loss. You may have been prescribed medication that can change in your level of thinking and ability to operate machinery. These medications include hydrocodone and Ativan. Also, Benadryl has been known to do this as well. Be sure to check with your pharmacist and ask if the medications you've prescribed can affect your level of consciousness. I recommend not operating heavy machinery or driving while on medication such as these. CHARLINE ESCAMILLA MD Nov 11, 2016 22:37
[2016-11-11] MEDS ORDERED: ONDANSETRON PF 4 MG/2 ML VIAL. IV PRN (22:45)
[2016-11-11] MEDS: FENTANYL PF 100 MCG/2 ML VIAL. IV PRN ×2 (23:03→23:37)
[2016-11-11] MEDS ORDERED: HYDROXYZINE HCL 10 MG TABLET PO PRN (23:30)
[2016-11-12] VITALS (7 sets, daily range): BP systolic 110–154; BP diastolic 68–100
[2016-11-12] MEDS: FENTANYL PF 100 MCG/2 ML VIAL. IV PRN ×13 (00:12→23:57)
--- NOTE | 2016-11-12 00:20 | ACF ---
Admission Forms Criteria PAIN MANAGEMENT [facility] Clinical Indications for Admission to Inpatient Care (Place 'X' for any and all applicable criteria): Hospital admission is needed for appropriate care of the patient because of ANY ONE of the following are present (1)(2)(3)(4)(5): [X]I. Severe pain requiring acute inpatient management as indicated by ALL of the following (2)(5)(10): [X]a) Continuous or frequent (eg, every 2 to 4 hours) parenteral analgesics required [A] [X]b) Necessity (ie, alternative approaches not effective) for analgesic regimen that can only be performed or initiated in inpatient setting [ ]II. Pain causing debilitation to the point of inability to function or be supported at any other level of care [ ]III. Severe side effects from pain medications as indicated by ANY ONE of the following (12)(13)(14)(15): [ ]a) Uncontrollable seizures [ ]b) Cardiac arrhythmias [ ]c) Severe volume depletion [ ]d) Vomiting that is uncontrollable at any other level of care [ ]e) Altered mental status ([place] coma scale score less than 13) [ ]f) Obstipation with inadequate GI function to maintain nutrition [ ]g) Dehydration that is severe or persistent The original [employer] content created by [employer] has been revised. The portions of the content which have been revised are identified through the use of italic text or in bold, and [facility] has neither reviewed nor approved the modified material. All other unmodified content is copyright [employer]. Please see references footnoted in the original [facility] edition 2016 Admission Criteria Met?: Yes TITA BETANCOURT Nov 12, 2016 00:20
[2016-11-12] MEDS ORDERED: DIPHENHYDRAMINE HCL 25 MG CAPSULE PO PRN (02:00)
[2016-11-12] MEDS: AMITRIPTYLINE HCL 50 MG TABLET PO SCH ×2 (02:26→20:32)
[2016-11-12] MEDS: GABAPENTIN 300 MG CAPSULE. PO SCH ×4 (02:26→20:32)
[2016-11-12] MEDS: CYCLOBENZAPRINE 10 MG TABLET. PO PRN ×3 (02:26→20:54)
[2016-11-12] MEDS: OXYCODONE/APAP 5/325 TABLET. PO PRN (02:26)
[2016-11-12] MEDS: OXYCODONE IR 30 MG TABLET. PO SCH ×6 (03:32→23:51)
[2016-11-12] MEDS: ALPRAZOLAM 0.5 MG TABLET PO PRN ×3 (03:32→12:03)
[2016-11-12 04:10] LABS: BASO % 1 % (0-3); EOS % 5 % (0-3); HEMATOCRIT 37.9 % (39.0-53.0); HEMOGLOBIN 12.4 g/dL (13.0-17.5); LYMPH # 1.6 x10^3/uL (1.0-4.8); LYMPH % 20 % (24-48); MEAN CORPUSCULAR HEMOGLOBIN 27 pg (25-35); MEAN CORPUSCULAR HGB CONC 33 g/dL (31-37); MEAN CORPUSCULAR VOLUME 82 fL (79-100); MONO % 11 % (0-9); NEUT % 63 % (31-73); PLATELET COUNT 319 x10^3/uL (140-400); RED BLOOD COUNT 4.62 x10^6/uL (4.30-5.70); RED CELL DISTRIBUTION WIDTH 14.8 % (11.5-14.5)
[2016-11-12 04:34] LABS: CALCIUM 9.4 mg/dL (8.5-10.1); CREATININE 0.8 mg/dL (0.7-1.3); GFR 108.2; POTASSIUM 3.9 mmol/L (3.5-5.1)
[2016-11-12] MEDS ORDERED: MAGNESIUM HYDROXIDE 2,400 MG/30 ML ORAL.SUSP. PO PRN (07:30)
[2016-11-12] MEDS: DOCUSATE SODIUM 100 MG CAPSULE PO SCH ×2 (09:00→09:22)
[2016-11-12] MEDS ORDERED: GABAPENTIN 300 MG CAPSULE. PO SCH (09:00)
[2016-11-12] MEDS: POLYETHYLENE GLYCOL 3350 17 GM PACKET. PO SCH (09:22)
[2016-11-12] MEDS: LIDOCAINE 5% TOPICAL OINTMENT 35GM TUBE. TP SCH ×3 (09:23→20:32)
[2016-11-12] MEDS: OXYCODONE ER 10 MG TAB.ER.12H. PO SCH ×2 (09:23→21:17)
--- NOTE | 2016-11-12 09:31 | PDOC1 ---
History and Physical Date of Admission Date of Admission DATE: 11/12/16 TIME: 09:24 Identification/Chief Complaint Chief Complaint RSD flare Source Source: Caregiver, Chart review, Patient History of Present Illness History of Present Illness 36 MAle, known to me, I last admitted 2015 for RSD flare, BUt had an admission here few mos ago also by my colleagues.. HE comes in with another flare, Hardly can stand, cant touch feet,. Legit pain as i see skin changes, hyperpigmentation on plantar surfaces, edema. Started to have RSD from work related injury (electrocuted accidentally yrs ago). Has been to pain clinic before. NOt wishing to see one but knows it just takes time for meds to kick in , CLaims IV fentanyl working, On his own home pain regimen at home includes oxycontin, oxycodone 20 mgs q6, gabapentin etc among others. Long nails bec unable to cut secondary to pain - nails are curling downwards already. Past Medical History Cardiovascular: CAD CENTRAL NERVOUS SYSTEM: Other Psych: Anxiety, Other Rheumatologic: Rheumatoid arthritis Past Surgical History Past Surgical History: No pertinent history Family History Family History: No Significant Social History Smoke: No ALCOHOL: none Drugs: None Current Problem List Problem List Problems Medical Problems: (1) Leg pain Status: Acute (2) Reflex sympathetic dystrophy of both lower extremities Status: Acute Problems: Current Medications Current Medications Current Medications Hydromorphone HCl (Dilaudid) 1 mg PRN Q30MIN PRN IV SEVERE PAIN Last administered on 11/11/16 22:31; Start 11/11/16 at 21:30; Stop 11/11/16 at 22:32; Status DC Ondansetron HCl 4 mg 4 mg 1X ONCE IV Last administered on 11/11/16 21:26; Start 11/11/16 at 21:45; Stop 11/11/16 at 21:46; Status DC Sodium Chloride (Iv Sodium Chloride 0.9% 500ml Bag) 500 ml @ 500 mls/hr 1X ONCE IV Last administered on 11/11/16 21:26; Start 11/11/16 at 21:45; Stop at 22:44; Status DC Fentanyl Citrate (Fentanyl 2ml Vial) 50 mcg PRN Q30MIN PRN IV SEVERE PAIN Last administered on 11/12/16 00:12; Start 11/11/16 at 22:45; Stop 11/12/16 at 00:12; Status DC Ondansetron HCl (Zofran) 4 mg PRN Q8HRS PRN IV NAUSEA/VOMITING; Start 11/11/16 at 22:45; Stop 11/12/16 at 22:44 Hydroxyzine HCl (Atarax) 10 mg PRN QHS PRN PO INSOMNIA; Start 11/11/16 at 23:30 Fentanyl Citrate (Fentanyl 2ml Vial) 50 mcg PRN Q1HR PRN IV SEVERE PAIN Last administered on 11/12/16 06:25; Start 11/12/16 at 00:15 Alprazolam (Xanax) 0.5 mg PRN TID PRN PO ANXIETY / AGITATION Last administered on 11/12/16 06:25; Start 11/12/16 at 02:00 Amitriptyline HCl (Elavil) 50 mg QHS PO ; Start 11/12/16 at 21:00; Stop 11/12/16 at 21:00; Status DC Cyclobenzaprine HCl (Flexeril) 10 mg PRN TID PRN PO MUSCLE PAIN Last administered on 11/12/16 02:26; Start 11/12/16 at 02:00 Diphenhydramine HCl (Benadryl) 25 mg PRN QHS PRN PO INSOMNIA; Start 11/12/16 at 02:00 Docusate Sodium (Colace) 100 mg DAILY PO ; Start 11/12/16 at 09:00 Gabapentin (Neurontin) 300 mg TID PO ; Start 11/12/16 at 09:00; Stop 11/12/16 at 09:00; Status DC Lidocaine (Xylocaine) 1 maggi TID TP ; Start 11/12/16 at 09:00 Oxycodone HCl (Roxicodone) 30 mg Q4HRS PO Last administered on 11/12/16 03:32; Start 11/12/16 at 04:00 Oxycodone HCl (Oxycontin) 20 mg Q12HR PO ; Start 11/12/16 at 09:00 Oxycodone/ Acetaminophen (Percocet 5/325) 1 tab PRN Q6HRS PRN PO SEVERE PAIN Last administered on 11/12/16 02:26; Start 11/12/16 at 02:00 Amitriptyline HCl (Elavil) 50 mg QHS PO Last administered on 11/12/16 02:26; Start 11/12/16 at 02:00 Gabapentin (Neurontin) 300 mg TID PO Last administered on 11/12/16 02:26; Start 11/12/16 at 02:00 Docusate Sodium (Colace) 100 mg DAILY PO ; Start 11/12/16 at 09:00 Polyethylene Glycol (miraLAX PACKET) 17 gm DAILY PO ; Start 11/12/16 at 09:00 Magnesium Hydroxide (Milk Of Magnesia) 2,400 mg PRN DAILY PRN PO CONSTIPATION; Start 11/12/16 at 07:30 Active Scripts Active Percocet 5-325 Mg Tablet (Oxycodone/Acetaminophen) 1 Each Tablet 1 Tab PO PRN Q6HRS PRN Cyclobenzaprine Hcl 10 Mg Tablet 1 Tab PO TID PRN Gabapentin 300 Mg Capsule 300 Mg PO TID Lidocaine 35.44 Gm Oint...g. 1 Maggi TP TID Amitriptyline Hcl 50 Mg Tablet 50 Mg PO QHS Benadryl (Diphenhydramine Hcl) 25 Mg Capsule 25 Mg PO PRN QHS PRN Oxycontin (Oxycodone HCl) 10 Mg Tab.er.12h 20 Mg PO Q12HR Colace (Docusate Sodium) 100 Mg Capsule 100 Mg PO DAILY Oxycodone Hcl 30 Mg Tablet 30 Mg PO Q4HRS Reported Xanax (Alprazolam) 0.5 Mg Tablet 0.5 Mg PO TID PRN Allergies Allergies: Coded Allergies: butorphanol (Verified Allergy, Severe, Shortness of Air, 08/13/16) ketorolac (Verified Allergy, Severe, Shortness of Air, 08/13/16) cephalexin (Verified Allergy, Intermediate, 07/18/16) morphine (Verified Allergy, Intermediate, TOLERATES OXYCODONE, 07/19/16) ROS General: No: Appetite, Chills, Fatigue, Malaise, Night Sweats, Other PSYCHOLOGICAL ROS: No: Anxiety, Behavioral Disorder, Concentration difficultie , Decreased libido, Depression, Disorientation, Hallucinations, Hostility, Irritablity, Memory difficulties, Mood Swings, Obsessive thoughts, Other, Physical abuse, Sexual abuse, Sleep disturbances, Suicidal ideation Eyes: No Blurry vision, No Decreased vision, No Double vision, No Dry eyes, No Excessive tearing, No Eye Pain, No Itchy Eyes, No Loss of vision, No Other, No Photophobia, No Scotomata, No Uses contacts, No Uses glasses HEENT: No: Epistaxis, Heacaches, Hearing change, Nasal congestion, Nasal discharge, Oral lesions, Other, Sinus pain, Sneezing, Snoring, Sore Throat, Tinnitus, Vertigo, Visual Changes, Vocal changes ALLERGY AND IMMUNOLOGY: No: Hives, Insect Bite Sensitivity, Itchy/Watery Eyes, Nasal Congestion, Other, Post Nasal Drip, Seasonal Allergies Hematological and Lymphatic: No: Bleeding Problems, Blood Clots, Blood Transfusions, Brusing, Night Sweats, Other, Pallor, Swollen Lymph Nodes ENDOCRINE: No: Breast Changes, Galactorrhea, Hair Pattern Changes, Hot Flashes , Malaise/lethargy, Mood Swings, Other, Palpitations, Polydipsia/polyuria, Skin Changes, Temperature Intolerance, Unexpected Weight Changes Breast: No New/Changing Breast Lumps, No Nipple changes, No Nipple discharge, No Other Cardiovascular: No Chest Pain, No Edema, No Lt Headedness, No Orthopnea, No Other, No Palpitations, No Paroxysmal Noc. Dyspnea Gastrointestinal: No Abdominal Pain, No Constipation, No Diarrhea, No Hematochezia, No Melena, No Nausea, No Other, No Vomiting Genitourinary: No , No , No , No , No , No , No , No Discharge, No Dysuria, No Flank Pain, No Frequency, No Hematuria, No Incontinence, No Other, No Pain, No Retention, No Urgency Musculoskeletal: No Gait Disturbance, No Joint Pain, No Joint Stiffness, No Joint Swelling, No Muscle Pain, No Muscular Weakness, No Other, No Pain In:, No Swelling In: Neurological: No Behavorial Changes, No Bowel/Bladder ControlChng, No Confusion , No Dizziness, No Gait Disturbance, No Headaches, No Impaired Coord/balance, No Memory Loss, No Numbness/Tingling, No Other, No Seizures, No Speech Problems , No Tremors, No Visual Changes, No Weakness Skin: Yes Acne, Yes Other (pain, swelling, balck hyperpigmentation on plantar surfaces both feet) Physical Exam General: mild distress, Other (from pain, looks very uncomfortable) HEENT: Atraumatic Lungs: Clear to auscultation Cardiovascular: S1 Breasts: Normal Abdomen: Normal bowel sounds, Soft, No tenderness, No hepatosplenomegaly, No masses Male Genitals Exam: normal genitalia, normal prostate Rectal Exam: not examined PELVIC: Nml ext genitalia Extremities: No clubbing, No cyanosis, No edema, Normal pulses, No tenderness/ swelling, Other (as above - pls) Skin: Other (as above pls) Neuro: Normal gait Psych/Mental Status: Mental status NL, Mood NL Vitals Vitals Vital Signs Date Time Temp Pulse Resp B/P Pulse Ox O2 Delivery O2 Flow Rate FiO2 11/12/16 07:00 97.4 91 20 134/95 94 Room Air 97.4 Labs Labs Laboratory Tests Test 11/12/16 03:30 White Blood Count 8.0x10^3/uL (4.0-11.0) Red Blood Count 4.62x10^6/uL (4.30-5.70) Hemoglobin 12.4g/dL (13.0-17.5) Hematocrit 37.9% (39.0-53.0) Mean Corpuscular Volume 82fL (79-100) Mean Corpuscular Hemoglobin 27pg (25-35) Mean Corpuscular Hemoglobin Concent 33g/dL (31-37) Red Cell Distribution Width 14.8% (11.5-14.5) Platelet Count 319x10^3/uL (140-400) Neutrophils (%) (Auto) 63% (31-73) Lymphocytes (%) (Auto) 20% (24-48) Monocytes (%) (Auto) 11% (0-9) Eosinophils (%) (Auto) 5% (0-3) Basophils (%) (Auto) 1% (0-3) Neutrophils # (Auto) 5.0x10^3uL (1.8-7.7) Lymphocytes # (Auto) 1.6x10^3/uL (1.0-4.8) Monocytes # (Auto) 0.9x10^3/uL (0.0-1.1) Eosinophils # (Auto) 0.4x10^3/uL (0.0-0.7) Basophils # (Auto) 0.0x10^3/uL (0.0-0.2) Sodium Level 141mmol/L (136-145) Potassium Level 3.9mmol/L (3.5-5.1) Chloride Level 104mmol/L (98-107) Carbon Dioxide Level 28mmol/L (21-32) Anion Gap 9 (6-14) Blood Urea Nitrogen 11mg/dL (8-26) Creatinine 0.8mg/dL (0.7-1.3) Estimated GFR (Cockcroft-Gault) 108.2 Glucose Level 120mg/dL (70-99) Calcium Level 9.4mg/dL (8.5-10.1) Laboratory Tests Test 11/12/16 03:30 White Blood Count 8.0x10^3/uL (4.0-11.0) Red Blood Count 4.62x10^6/uL (4.30-5.70) Hemoglobin 12.4g/dL (13.0-17.5) Hematocrit 37.9% (39.0-53.0) Mean Corpuscular Volume 82fL (79-100) Mean Corpuscular Hemoglobin 27pg (25-35) Mean Corpuscular Hemoglobin Concent 33g/dL (31-37) Red Cell Distribution Width 14.8% (11.5-14.5) Platelet Count 319x10^3/uL (140-400) Neutrophils (%) (Auto) 63% (31-73) Lymphocytes (%) (Auto) 20% (24-48) Monocytes (%) (Auto) 11% (0-9) Eosinophils (%) (Auto) 5% (0-3) Basophils (%) (Auto) 1% (0-3) Neutrophils # (Auto) 5.0x10^3uL (1.8-7.7) Lymphocytes # (Auto) 1.6x10^3/uL (1.0-4.8) Monocytes # (Auto) 0.9x10^3/uL (0.0-1.1) Eosinophils # (Auto) 0.4x10^3/uL (0.0-0.7) Basophils # (Auto) 0.0x10^3/uL (0.0-0.2) Sodium Level 141mmol/L (136-145) Potassium Level 3.9mmol/L (3.5-5.1) Chloride Level 104mmol/L (98-107) Carbon Dioxide Level 28mmol/L (21-32) Anion Gap 9 (6-14) Blood Urea Nitrogen 11mg/dL (8-26) Creatinine 0.8mg/dL (0.7-1.3) Estimated GFR (Cockcroft-Gault) 108.2 Glucose Level 120mg/dL (70-99) Calcium Level 9.4mg/dL (8.5-10.1) VTE Prophylaxis Ordered VTE Prophylaxis Devices: Yes VTE Pharmacological Prophylaxi: Yes Assessment/Plan Assessment/Plan 1. RSD flare 2. MS - stable - last MRI brain or 08/24 ok 3. HX of work related injury (electrocution) 4. Long nails PLAn: Keep current pain regimen Add stool softner Hold off pain mx consult COnsult podiatry - toe nail clipping murray RN and pt JENNIFER WILLETT MD Nov 12, 2016 09:31
[2016-11-12] MEDS ORDERED: AMITRIPTYLINE HCL 50 MG TABLET PO SCH (21:00)
[2016-11-13] MEDS: ALPRAZOLAM 0.5 MG TABLET PO PRN ×3 (01:29→17:55)
[2016-11-13] MEDS: FENTANYL PF 100 MCG/2 ML VIAL. IV PRN ×12 (01:30→19:57)
[2016-11-13 03:00] VITALS: BP 126/75
[2016-11-13] MEDS: LIDOCAINE 5% TOPICAL OINTMENT 35GM TUBE. TP SCH ×3 (03:33→20:26)
[2016-11-13] MEDS: OXYCODONE IR 30 MG TABLET. PO SCH ×5 (05:01→20:26)
[2016-11-13] MEDS: CYCLOBENZAPRINE 10 MG TABLET. PO PRN ×2 (05:18→14:30)
[2016-11-13 07:00] VITALS: BP 121/71
[2016-11-13] MEDS: POLYETHYLENE GLYCOL 3350 17 GM PACKET. PO SCH (08:14)
[2016-11-13] MEDS: GABAPENTIN 300 MG CAPSULE. PO SCH ×3 (08:14→20:26)
[2016-11-13] MEDS: DOCUSATE SODIUM 100 MG CAPSULE PO SCH ×2 (08:14→08:15)
[2016-11-13] MEDS: OXYCODONE ER 10 MG TAB.ER.12H. PO SCH ×2 (09:41→20:25)
--- NOTE | 2016-11-13 11:12 | PDOC ---
PROGRESS NOTES Chief Complaint Chief Complaint 1. RSD flare 2. MS - stable - last MRI brain or 08/24 ok 3. HX of work related injury (electrocution) 4. Long nails, s/p clipping 11/13/16 History of Present Illness History of Present Illness PAin flared again bec just had toe nail clipping by podiatry today Did discuss about pain mx, he says there is no need He knows current regimen will work - just that today's procedure was a setback PLAN: CPM PT/OT Dw pt and Vitals Vitals Vital Signs Date Time Temp Pulse Resp B/P Pulse Ox O2 Delivery O2 Flow Rate FiO2 11/13/16 09:41 Room Air 11/13/16 07:00 97.9 89 18 121/71 93 97.9 Physical Exam General: mild distress, Other (from pain, looks very uncomfortable) Lungs: Clear Abdomen: Normal bowel sounds, Soft, No tenderness, No hepatosplenomegaly, No masses Extremities: No clubbing, No cyanosis, No edema, Normal pulses, No tenderness/ swelling, Other (as above - pls) Skin: Other (as above pls) Review of Systems Review of Systems feet pain, swelling, all else is neg Assessment and Plan Assessmemt and Plan Problems Medical Problems: (1) Intractable pain Status: Acute (2) Leg pain Status: Acute (3) Reflex sympathetic dystrophy of both lower extremities Status: Acute Problems: Comment Review of Relevant I have reviewed the following items mali (where applicable) has been applied. Labs Laboratory Tests Test 11/12/16 03:30 White Blood Count 8.0x10^3/uL (4.0-11.0) Red Blood Count 4.62x10^6/uL (4.30-5.70) Hemoglobin 12.4g/dL (13.0-17.5) Hematocrit 37.9% (39.0-53.0) Mean Corpuscular Volume 82fL (79-100) Mean Corpuscular Hemoglobin 27pg (25-35) Mean Corpuscular Hemoglobin Concent 33g/dL (31-37) Red Cell Distribution Width 14.8% (11.5-14.5) Platelet Count 319x10^3/uL (140-400) Neutrophils (%) (Auto) 63% (31-73) Lymphocytes (%) (Auto) 20% (24-48) Monocytes (%) (Auto) 11% (0-9) Eosinophils (%) (Auto) 5% (0-3) Basophils (%) (Auto) 1% (0-3) Neutrophils # (Auto) 5.0x10^3uL (1.8-7.7) Lymphocytes # (Auto) 1.6x10^3/uL (1.0-4.8) Monocytes # (Auto) 0.9x10^3/uL (0.0-1.1) Eosinophils # (Auto) 0.4x10^3/uL (0.0-0.7) Basophils # (Auto) 0.0x10^3/uL (0.0-0.2) Sodium Level 141mmol/L (136-145) Potassium Level 3.9mmol/L (3.5-5.1) Chloride Level 104mmol/L (98-107) Carbon Dioxide Level 28mmol/L (21-32) Anion Gap 9 (6-14) Blood Urea Nitrogen 11mg/dL (8-26) Creatinine 0.8mg/dL (0.7-1.3) Estimated GFR (Cockcroft-Gault) 108.2 Glucose Level 120mg/dL (70-99) Calcium Level 9.4mg/dL (8.5-10.1) Medications Current Medications Hydromorphone HCl (Dilaudid) 1 mg PRN Q30MIN PRN IV SEVERE PAIN Last administered on 11/11/16 22:31; Start 11/11/16 at 21:30; Stop 11/11/16 at 22:32; Status DC Ondansetron HCl 4 mg 4 mg 1X ONCE IV Last administered on 11/11/16 21:26; Start 11/11/16 at 21:45; Stop 11/11/16 at 21:46; Status DC Sodium Chloride (Iv Sodium Chloride 0.9% 500ml Bag) 500 ml @ 500 mls/hr 1X ONCE IV Last administered on 11/11/16 21:26; Start 11/11/16 at 21:45; Stop at 22:44; Status DC Fentanyl Citrate (Fentanyl 2ml Vial) 50 mcg PRN Q30MIN PRN IV SEVERE PAIN Last administered on 11/12/16 00:12; Start 11/11/16 at 22:45; Stop 11/12/16 at 00:12; Status DC Ondansetron HCl (Zofran) 4 mg PRN Q8HRS PRN IV NAUSEA/VOMITING; Start 11/11/16 at 22:45; Stop 11/12/16 at 22:44; Status DC Hydroxyzine HCl (Atarax) 10 mg PRN QHS PRN PO INSOMNIA; Start 11/11/16 at 23:30 Fentanyl Citrate (Fentanyl 2ml Vial) 50 mcg PRN Q1HR PRN IV SEVERE PAIN Last administered on 11/13/16 09:41; Start 11/12/16 at 00:15 Alprazolam (Xanax) 0.5 mg PRN TID PRN PO ANXIETY / AGITATION Last administered on 11/13/16 09:48; Start 11/12/16 at 02:00 Amitriptyline HCl (Elavil) 50 mg QHS PO ; Start 11/12/16 at 21:00; Stop 11/12/16 at 21:00; Status DC Cyclobenzaprine HCl (Flexeril) 10 mg PRN TID PRN PO MUSCLE PAIN Last administered on 11/13/16 05:18; Start 11/12/16 at 02:00 Diphenhydramine HCl (Benadryl) 25 mg PRN QHS PRN PO INSOMNIA; Start 11/12/16 at 02:00 Docusate Sodium (Colace) 100 mg DAILY PO Last administered on 11/13/16 08:14; Start 11/12/16 at 09:00 Gabapentin (Neurontin) 300 mg TID PO ; Start 11/12/16 at 09:00; Stop 11/12/16 at 09:00; Status DC Lidocaine (Xylocaine) 1 maggi TID TP Last administered on 11/13/16 03:33; Start 11/12/16 at 09:00 Oxycodone HCl (Roxicodone) 30 mg Q4HRS PO Last administered on 11/13/16 08:14; Start 11/12/16 at 04:00 Oxycodone HCl (Oxycontin) 20 mg Q12HR PO Last administered on 11/13/16 09:41; Start 11/12/16 at 09:00 Oxycodone/ Acetaminophen (Percocet 5/325) 1 tab PRN Q6HRS PRN PO SEVERE PAIN Last administered on 11/12/16 02:26; Start 11/12/16 at 02:00 Amitriptyline HCl (Elavil) 50 mg QHS PO Last administered on 11/12/16 20:32; Start 11/12/16 at 02:00 Gabapentin (Neurontin) 300 mg TID PO Last administered on 11/13/16 08:14; Start 11/12/16 at 02:00 Docusate Sodium (Colace) 100 mg DAILY PO ; Start 11/12/16 at 09:00 Polyethylene Glycol (miraLAX PACKET) 17 gm DAILY PO Last administered on 08:14; Start 11/12/16 at 09:00 Magnesium Hydroxide (Milk Of Magnesia) 2,400 mg PRN DAILY PRN PO CONSTIPATION; Start 11/12/16 at 07:30 Active Scripts Active Percocet 5-325 Mg Tablet (Oxycodone/Acetaminophen) 1 Each Tablet 1 Tab PO PRN Q6HRS PRN Cyclobenzaprine Hcl 10 Mg Tablet 1 Tab PO TID PRN Gabapentin 300 Mg Capsule 300 Mg PO TID Lidocaine 35.44 Gm Oint...g. 1 Maggi TP TID Amitriptyline Hcl 50 Mg Tablet 50 Mg PO QHS Benadryl (Diphenhydramine Hcl) 25 Mg Capsule 25 Mg PO PRN QHS PRN Oxycontin (Oxycodone HCl) 10 Mg Tab.er.12h 20 Mg PO Q12HR Colace (Docusate Sodium) 100 Mg Capsule 100 Mg PO DAILY Oxycodone Hcl 30 Mg Tablet 30 Mg PO Q4HRS Reported Xanax (Alprazolam) 0.5 Mg Tablet 0.5 Mg PO TID PRN Vitals/I & O Vital Sign - Last 24 Hours 11/12/16 11/12/16 11/12/16 11/12/16 11:45 12:13 14:07 15:00 Temp 98.0 98.0 Pulse 105 Resp 20 B/P 123/84 Pulse Ox 92 O2 Delivery Room Air Room Air Room Air Room Air 11/12/16 11/12/16 11/12/16 11/12/16 15:30 17:18 17:20 18:47 O2 Delivery Room Air Room Air Room Air Room Air 11/12/16 11/12/16 11/12/16 11/12/16 19:00 20:32 20:47 21:17 Temp 97.5 97.5 Pulse 90 Resp 20 18 20 18 B/P 133/82 Pulse Ox 96 96 96 96 O2 Delivery Room Air Room Air Room Air Room Air 11/12/16 11/12/16 11/12/16 11/13/16 23:00 23:51 23:57 00:51 Temp 98.9 98.9 Pulse 90 Resp 18 20 20 18 B/P 110/68 Pulse Ox 92 92 92 O2 Delivery Room Air Room Air Room Air 11/13/16 11/13/16 11/13/16 11/13/16 01:17 01:30 03:00 03:28 Temp 98.8 98.8 Pulse 90 Resp 16 18 18 18 B/P 126/75 Pulse Ox 92 92 95 92 O2 Delivery Room Air Room Air Room Air Room Air 11/13/16 11/13/16 11/13/16 11/13/16 03:58 05:01 05:19 05:49 Resp 16 18 18 Pulse Ox 92 92 92 O2 Delivery Room Air Room Air Room Air 11/13/16 11/13/16 11/13/16 11/13/16 05:49 07:00 08:11 08:14 Temp 97.9 97.9 Pulse 89 Resp 18 B/P 121/71 Pulse Ox 92 93 O2 Delivery Room Air Room Air Room Air Room Air 11/13/16 11/13/16 09:41 09:41 O2 Delivery Room Air Room Air Intake and Output 11/12/16 11/12/16 11/13/16 15:00 23:00 07:00 Intake Total 600 ml 800 ml Output Total 1400 ml 1100 ml Balance -800 ml -300 ml JENNIFER WILLETT MD Nov 13, 2016 11:12
[2016-11-13 11:16] VITALS: BP 121/48
[2016-11-13 14:46] VITALS: BP 121/52
[2016-11-13 19:00] VITALS: BP 137/93
[2016-11-13] MEDS: AMITRIPTYLINE HCL 50 MG TABLET PO SCH (20:26)
[2016-11-13] MEDS: OXYCODONE/APAP 5/325 TABLET. PO PRN (20:34)
[2016-11-13 23:00] VITALS: BP 121/74
[2016-11-14] MEDS: OXYCODONE IR 30 MG TABLET. PO SCH ×6 (00:04→20:54)
[2016-11-14] MEDS: CYCLOBENZAPRINE 10 MG TABLET. PO PRN ×3 (00:04→17:58)
[2016-11-14] MEDS: FENTANYL PF 100 MCG/2 ML VIAL. IV PRN ×9 (00:10→20:56)
[2016-11-14 03:00] VITALS: BP 135/87
--- NOTE | 2016-11-14 03:19 | CONS ---
DATE OF CONSULTATION: 11/13/2016 HISTORY OF PRESENT ILLNESS: This is a 36-year-old male that has had multiple admissions. He is admitted for reflex sympathetic dystrophy flareup. 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 Due to his very severe pain syndrome, he has not been able to work on, his nails are very long and painful and this may be contributing to his discomfort in lower extremities. PAST MEDICAL HISTORY: Reflex sympathetic dystrophy of both lower extremities. MEDICATIONS: Reviewed. He takes Percocet, cyclobenzaprine, gabapentin 300 mg t.i.d., lidocaine ointment, amitriptyline, Benadryl, oxycodone, Colace and possibly Xanax. ALLERGIES: BUTORPHANOL, KETOROLAC-SHORTNESS OF BREATH, CEPHALEXIN/KEFLEX INTERMEDIATE ALLERGY, MORPHINE. PHYSICAL EXAMINATION: DERM: The patient has elongated mycotic nails of all digits. No break in the skin. No signs of infection. Decreased turgor. Skin is covered with what appeared to be lidocaine gel. Absence of hair growth. No signs of gangrene. VASCULAR: Pedal pulses are palpated, diminished. NEUROLOGIC: Severe pain due to reflex sympathetic dystrophy syndrome, unable to essentially touch him for the most part during treatment. MUSCULOSKELETAL: No bunion or hammertoe abnormalities noted. No signs of hyperkeratotic lesions. ASSESSMENT: 1. Clinical evidence of painful onychomycosis, onychocryptosis and lysis of all 10 toenails, but no signs of infection. 2. Neuropathy in the form of reflex sympathetic dystrophy with hypersensitivity. PLAN: Debridement of all mycotic nails performed using double action nail forceps and then followed by rotary drill. No hemorrhage incurred. Hopefully, this will alleviate some of his discomfort seen that they were getting to be a curly Q [place] nails growing into the skin. Thanks very much, Dr. Regalado for asking me to take care of this patient regarding his podiatric needs. Hopefully, this has given him some benefit in regarding his pain issues. KATHY DUQUE DPM DR: LUIGI/pieter JOB#: [id number] / [id number]
[2016-11-14] MEDS: ALPRAZOLAM 0.5 MG TABLET PO PRN ×2 (04:43→16:11)
[2016-11-14] MEDS: OXYCODONE/APAP 5/325 TABLET. PO PRN ×2 (04:46→16:11)
[2016-11-14 07:15] VITALS: BP 124/83
[2016-11-14] MEDS: POLYETHYLENE GLYCOL 3350 17 GM PACKET. PO SCH (08:16)
[2016-11-14] MEDS: GABAPENTIN 300 MG CAPSULE. PO SCH ×3 (08:16→20:54)
[2016-11-14] MEDS: OXYCODONE ER 10 MG TAB.ER.12H. PO SCH ×2 (08:17→20:54)
[2016-11-14] MEDS: DOCUSATE SODIUM 100 MG CAPSULE PO SCH (08:20)
[2016-11-14] MEDS: LIDOCAINE 5% TOPICAL OINTMENT 35GM TUBE. TP SCH ×3 (09:30→21:00)
--- NOTE | 2016-11-14 10:29 | PDOC ---
PROGRESS NOTES Chief Complaint Chief Complaint 1. RSD flare 2. MS - stable - last MRI brain or 08/24 ok 3. HX of work related injury (electrocution) 4. Long nails, s/p clipping 11/13/16 History of Present Illness History of Present Illness PAin flared again bec just had toe nail clipping by podiatry yesterday Did discuss about pain mx, he says there is no need He knows current regimen will work - just that today's procedure was a setback On fentanyl IV q1 50 mcgs - agreeable to do 75 mcgs q2 prn for RN purposes Dw Pt not interetsed in long acting fentanyl pain patch PLAN: Fentanyl 75 IV q2 PT/OT NOt ready for home today Dw RN Vitals Vitals Vital Signs Date Time Temp Pulse Resp B/P Pulse Ox O2 Delivery O2 Flow Rate FiO2 11/14/16 09:48 Room Air 11/14/16 07:15 97.7 91 20 124/83 95 97.7 Physical Exam General: mild distress, Other (from pain, looks very uncomfortable) Lungs: Clear Abdomen: Normal bowel sounds, Soft, No tenderness, No hepatosplenomegaly, No masses Extremities: No clubbing, No cyanosis, No edema, Normal pulses, No tenderness/ swelling, Other (as above - pls) Skin: Other (as above pls) Review of Systems Review of Systems pain feet, all else is neg Assessment and Plan Assessmemt and Plan Problems Medical Problems: (1) Intractable pain Status: Acute (2) Leg pain Status: Acute (3) Reflex sympathetic dystrophy of both lower extremities Status: Acute Problems: Comment Review of Relevant I have reviewed the following items mali (where applicable) has been applied. Medications Current Medications Hydromorphone HCl (Dilaudid) 1 mg PRN Q30MIN PRN IV SEVERE PAIN Last administered on 11/11/16 22:31; Start 11/11/16 at 21:30; Stop 11/11/16 at 22:32; Status DC Ondansetron HCl 4 mg 4 mg 1X ONCE IV Last administered on 11/11/16 21:26; Start 11/11/16 at 21:45; Stop 11/11/16 at 21:46; Status DC Sodium Chloride (Iv Sodium Chloride 0.9% 500ml Bag) 500 ml @ 500 mls/hr 1X ONCE IV Last administered on 11/11/16 21:26; Start 11/11/16 at 21:45; Stop at 22:44; Status DC Fentanyl Citrate (Fentanyl 2ml Vial) 50 mcg PRN Q30MIN PRN IV SEVERE PAIN Last administered on 11/12/16 00:12; Start 11/11/16 at 22:45; Stop 11/12/16 at 00:12; Status DC Ondansetron HCl (Zofran) 4 mg PRN Q8HRS PRN IV NAUSEA/VOMITING; Start 11/11/16 at 22:45; Stop 11/12/16 at 22:44; Status DC Hydroxyzine HCl (Atarax) 10 mg PRN QHS PRN PO INSOMNIA; Start 11/11/16 at 23:30 Fentanyl Citrate (Fentanyl 2ml Vial) 50 mcg PRN Q1HR PRN IV SEVERE PAIN Last administered on 11/14/16 09:48; Start 11/12/16 at 00:15 Alprazolam (Xanax) 0.5 mg PRN TID PRN PO ANXIETY / AGITATION Last administered on 11/14/16 04:43; Start 11/12/16 at 02:00 Amitriptyline HCl (Elavil) 50 mg QHS PO ; Start 11/12/16 at 21:00; Stop 11/12/16 at 21:00; Status DC Cyclobenzaprine HCl (Flexeril) 10 mg PRN TID PRN PO MUSCLE PAIN Last administered on 11/14/16 08:16; Start 11/12/16 at 02:00 Diphenhydramine HCl (Benadryl) 25 mg PRN QHS PRN PO INSOMNIA; Start 11/12/16 at 02:00 Docusate Sodium (Colace) 100 mg DAILY PO Last administered on 11/14/16 08:20; Start 11/12/16 at 09:00 Gabapentin (Neurontin) 300 mg TID PO ; Start 11/12/16 at 09:00; Stop 11/12/16 at 09:00; Status DC Lidocaine (Xylocaine) 1 maggi TID TP Last administered on 11/14/16 09:30; Start 11/12/16 at 09:00 Oxycodone HCl (Roxicodone) 30 mg Q4HRS PO Last administered on 11/14/16 08:16; Start 11/12/16 at 04:00 Oxycodone HCl (Oxycontin) 20 mg Q12HR PO Last administered on 11/14/16 08:17; Start 11/12/16 at 09:00 Oxycodone/ Acetaminophen (Percocet 5/325) 1 tab PRN Q6HRS PRN PO SEVERE PAIN Last administered on 11/14/16 04:46; Start 11/12/16 at 02:00 Amitriptyline HCl (Elavil) 50 mg QHS PO Last administered on 11/13/16 20:26; Start 11/12/16 at 02:00 Gabapentin (Neurontin) 300 mg TID PO Last administered on 11/14/16 08:16; Start 11/12/16 at 02:00 Docusate Sodium (Colace) 100 mg DAILY PO ; Start 11/12/16 at 09:00; Stop 11/13/16 at 16:17; Status DC Polyethylene Glycol (miraLAX PACKET) 17 gm DAILY PO Last administered on 08:16; Start 11/12/16 at 09:00 Magnesium Hydroxide (Milk Of Magnesia) 2,400 mg PRN DAILY PRN PO CONSTIPATION; Start 11/12/16 at 07:30 Active Scripts Active Percocet 5-325 Mg Tablet (Oxycodone/Acetaminophen) 1 Each Tablet 1 Tab PO PRN Q6HRS PRN Cyclobenzaprine Hcl 10 Mg Tablet 1 Tab PO TID PRN Gabapentin 300 Mg Capsule 300 Mg PO TID Lidocaine 35.44 Gm Oint...g. 1 Maggi TP TID Amitriptyline Hcl 50 Mg Tablet 50 Mg PO QHS Benadryl (Diphenhydramine Hcl) 25 Mg Capsule 25 Mg PO PRN QHS PRN Oxycontin (Oxycodone HCl) 10 Mg Tab.er.12h 20 Mg PO Q12HR Colace (Docusate Sodium) 100 Mg Capsule 100 Mg PO DAILY Oxycodone Hcl 30 Mg Tablet 30 Mg PO Q4HRS Reported Xanax (Alprazolam) 0.5 Mg Tablet 0.5 Mg PO TID PRN Vitals/I & O Vital Sign - Last 24 Hours 11/13/16 11/13/16 11/13/16 11/13/16 11:16 12:03 12:03 13:15 Temp 97.9 97.9 Pulse 103 Resp 18 B/P 121/48 Pulse Ox 94 O2 Delivery Room Air Room Air Room Air 11/13/16 11/13/16 11/13/16 11/13/16 14:31 14:46 16:13 16:47 Temp 97.9 97.9 Pulse 99 Resp 18 B/P 121/52 Pulse Ox 94 94 O2 Delivery Room Air Room Air Room Air Room Air 11/13/16 11/13/16 11/13/16 11/13/16 17:56 19:00 19:57 20:00 Temp 98.0 98.0 Pulse 114 Resp 18 B/P 137/93 Pulse Ox 93 94 O2 Delivery Room Air Room Air Room Air 11/13/16 11/13/16 11/13/16 11/13/16 20:25 20:26 20:34 21:34 Pulse Ox 94 94 94 94 O2 Delivery Room Air Room Air Room Air Room Air 11/13/16 11/14/16 11/14/16 11/14/16 23:00 00:04 00:10 00:25 Temp 98.4 98.4 Pulse 91 Resp 20 B/P 121/74 Pulse Ox 94 94 94 94 O2 Delivery Room Air Room Air Room Air 11/14/16 11/14/16 11/14/16 11/14/16 03:00 04:01 04:01 04:31 Temp 98.2 98.2 Pulse 106 Resp 20 B/P 135/87 Pulse Ox 91 94 94 94 O2 Delivery Room Air Room Air Room Air 11/14/16 11/14/16 11/14/16 11/14/16 04:46 05:01 06:21 07:15 Temp 97.7 97.7 Pulse 91 Resp 20 B/P 124/83 Pulse Ox 94 94 94 95 O2 Delivery Room Air Room Air Room Air 11/14/16 11/14/16 11/14/16 11/14/16 08:16 08:17 08:17 09:48 O2 Delivery Room Air Room Air Room Air Room Air 11/14/16 11/14/16 09:48 09:48 O2 Delivery Room Air Room Air Intake and Output 11/13/16 11/13/16 11/14/16 15:00 23:00 07:00 Intake Total 240 ml 920 ml 750 ml Output Total 1520 ml 800 ml 800 ml Balance -1280 ml 120 ml -50 ml JENNIFER WILLETT MD Nov 14, 2016 10:29
[2016-11-14 11:09] VITALS: BP 147/69
[2016-11-14 15:15] VITALS: BP 123/63
[2016-11-14 19:00] VITALS: BP 125/81
[2016-11-14] MEDS: AMITRIPTYLINE HCL 50 MG TABLET PO SCH (20:54)
[2016-11-15] MEDS: OXYCODONE IR 30 MG TABLET. PO SCH ×6 (01:01→20:09)
[2016-11-15] MEDS: FENTANYL PF 100 MCG/2 ML VIAL. IV PRN ×10 (01:01→22:46)
[2016-11-15 07:00] VITALS: BP 143/95
[2016-11-15] MEDS: GABAPENTIN 300 MG CAPSULE. PO SCH ×3 (08:30→20:10)
[2016-11-15] MEDS: DOCUSATE SODIUM 100 MG CAPSULE PO SCH (08:30)
[2016-11-15] MEDS: ALPRAZOLAM 0.5 MG TABLET PO PRN ×3 (08:30→20:38)
[2016-11-15] MEDS: CYCLOBENZAPRINE 10 MG TABLET. PO PRN ×2 (08:30→14:05)
[2016-11-15] MEDS: OXYCODONE ER 10 MG TAB.ER.12H. PO SCH ×2 (08:31→20:10)
[2016-11-15] MEDS: POLYETHYLENE GLYCOL 3350 17 GM PACKET. PO SCH (08:32)
[2016-11-15] MEDS: LIDOCAINE 5% TOPICAL OINTMENT 35GM TUBE. TP SCH ×3 (08:32→20:37)
[2016-11-15 10:44] VITALS: BP 131/87
[2016-11-15] MEDS: OXYCODONE/APAP 5/325 TABLET. PO PRN (12:13)
--- NOTE | 2016-11-15 13:16 | PDOC ---
PROGRESS NOTES Chief Complaint Chief Complaint 1. RSD flare 2. MS - stable - last MRI brain or 08/24 ok 3. HX of work related injury (electrocution) 4. 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 Refuses to inc oxycontin dose or start fentanyl patch We discussed about going home chandra - he agrees Worked with PT today says she just needs instructions form PT, otherwi PLAN: CPM HOme chandra Will need rx chandra for gabapentin and xanax Vitals Vitals Vital Signs Date Time Temp Pulse Resp B/P Pulse Ox O2 Delivery O2 Flow Rate FiO2 11/15/16 12:36 20 93 Room Air 11/15/16 10:44 97.8 109 131/87 97.8 Physical Exam General: mild distress, Other (from pain, looks very uncomfortable) Lungs: Clear Abdomen: Normal bowel sounds, Soft, No tenderness, No hepatosplenomegaly, No masses Extremities: No clubbing, No cyanosis, No edema, Normal pulses, No tenderness/ swelling, Other (as above - pls) Skin: Other (as above pls) Review of Systems Review of Systems pain, swelling, all else is neg Assessment and Plan Assessmemt and Plan Problems Medical Problems: (1) Intractable pain Status: Acute (2) Leg pain Status: Acute (3) Reflex sympathetic dystrophy of both lower extremities Status: Acute Problems: Comment Review of Relevant I have reviewed the following items mali (where applicable) has been applied. Medications Current Medications Hydromorphone HCl (Dilaudid) 1 mg PRN Q30MIN PRN IV SEVERE PAIN Last administered on 11/11/16 22:31; Start 11/11/16 at 21:30; Stop 11/11/16 at 22:32; Status DC Ondansetron HCl 4 mg 4 mg 1X ONCE IV Last administered on 11/11/16 21:26; Start 11/11/16 at 21:45; Stop 11/11/16 at 21:46; Status DC Sodium Chloride (Iv Sodium Chloride 0.9% 500ml Bag) 500 ml @ 500 mls/hr 1X ONCE IV Last administered on 11/11/16 21:26; Start 11/11/16 at 21:45; Stop at 22:44; Status DC Fentanyl Citrate (Fentanyl 2ml Vial) 50 mcg PRN Q30MIN PRN IV SEVERE PAIN Last administered on 11/12/16 00:12; Start 11/11/16 at 22:45; Stop 11/12/16 at 00:12; Status DC Ondansetron HCl (Zofran) 4 mg PRN Q8HRS PRN IV NAUSEA/VOMITING; Start 11/11/16 at 22:45; Stop 11/12/16 at 22:44; Status DC Hydroxyzine HCl (Atarax) 10 mg PRN QHS PRN PO INSOMNIA; Start 11/11/16 at 23:30 Fentanyl Citrate (Fentanyl 2ml Vial) 50 mcg PRN Q1HR PRN IV SEVERE PAIN Last administered on 11/14/16 09:48; Start 11/12/16 at 00:15; Stop 11/14/16 at 10:28; Status DC Alprazolam (Xanax) 0.5 mg PRN TID PRN PO ANXIETY / AGITATION Last administered on 11/15/16 08:30; Start 11/12/16 at 02:00 Amitriptyline HCl (Elavil) 50 mg QHS PO ; Start 11/12/16 at 21:00; Stop 11/12/16 at 21:00; Status DC Cyclobenzaprine HCl (Flexeril) 10 mg PRN TID PRN PO MUSCLE PAIN Last administered on 11/15/16 08:30; Start 11/12/16 at 02:00 Diphenhydramine HCl (Benadryl) 25 mg PRN QHS PRN PO INSOMNIA; Start 11/12/16 at 02:00 Docusate Sodium (Colace) 100 mg DAILY PO Last administered on 11/15/16 08:30; Start 11/12/16 at 09:00 Gabapentin (Neurontin) 300 mg TID PO ; Start 11/12/16 at 09:00; Stop 11/12/16 at 09:00; Status DC Lidocaine (Xylocaine) 1 maggi TID TP Last administered on 11/15/16 08:32; Start 11/12/16 at 09:00 Oxycodone HCl (Roxicodone) 30 mg Q4HRS PO Last administered on 11/15/16 12:13; Start 11/12/16 at 04:00 Oxycodone HCl (Oxycontin) 20 mg Q12HR PO Last administered on 11/15/16 08:31; Start 11/12/16 at 09:00 Oxycodone/ Acetaminophen (Percocet 5/325) 1 tab PRN Q6HRS PRN PO SEVERE PAIN Last administered on 11/15/16 12:13; Start 11/12/16 at 02:00 Amitriptyline HCl (Elavil) 50 mg QHS PO Last administered on 11/14/16 20:54; Start 11/12/16 at 02:00 Gabapentin (Neurontin) 300 mg TID PO Last administered on 11/15/16 08:30; Start 11/12/16 at 02:00 Docusate Sodium (Colace) 100 mg DAILY PO ; Start 11/12/16 at 09:00; Stop 11/13/16 at 16:17; Status DC Polyethylene Glycol (miraLAX PACKET) 17 gm DAILY PO Last administered on 08:16; Start 11/12/16 at 09:00 Magnesium Hydroxide (Milk Of Magnesia) 2,400 mg PRN DAILY PRN PO CONSTIPATION; Start 11/12/16 at 07:30 Fentanyl Citrate (Fentanyl 2ml Vial) 75 mcg PRN Q2HR PRN IV SEVERE PAIN Last administered on 11/15/16 12:36; Start 11/14/16 at 10:21 Active Scripts Active Percocet 5-325 Mg Tablet (Oxycodone/Acetaminophen) 1 Each Tablet 1 Tab PO PRN Q6HRS PRN Cyclobenzaprine Hcl 10 Mg Tablet 1 Tab PO TID PRN Gabapentin 300 Mg Capsule 300 Mg PO TID Lidocaine 35.44 Gm Oint...g. 1 Maggi TP TID Amitriptyline Hcl 50 Mg Tablet 50 Mg PO QHS Benadryl (Diphenhydramine Hcl) 25 Mg Capsule 25 Mg PO PRN QHS PRN Oxycontin (Oxycodone HCl) 10 Mg Tab.er.12h 20 Mg PO Q12HR Colace (Docusate Sodium) 100 Mg Capsule 100 Mg PO DAILY Oxycodone Hcl 30 Mg Tablet 30 Mg PO Q4HRS Reported Xanax (Alprazolam) 0.5 Mg Tablet 0.5 Mg PO TID PRN Vitals/I & O Vital Sign - Last 24 Hours 11/14/16 11/14/16 11/14/16 11/14/16 15:15 15:28 16:11 16:12 Temp 100.9 100.9 Pulse 94 Resp 20 B/P 123/63 Pulse Ox 97 96 O2 Delivery Room Air Room Air Room Air Room Air 11/14/16 11/14/16 11/14/16 11/14/16 17:22 17:59 19:00 20:00 Temp 97.9 97.9 Pulse 109 Resp 18 B/P 125/81 Pulse Ox 94 O2 Delivery Room Air Room Air Room Air Room Air 11/14/16 11/14/16 11/14/16 11/15/16 20:54 20:54 20:56 01:01 Pulse Ox 94 94 94 94 O2 Delivery Room Air Room Air Room Air Room Air 11/15/16 11/15/16 11/15/16 11/15/16 01:01 03:34 04:06 07:00 Temp 97.8 97.8 Pulse 110 Resp 20 B/P 143/95 Pulse Ox 94 94 94 93 O2 Delivery Room Air Room Air Room Air Room Air 11/15/16 11/15/16 11/15/16 11/15/16 08:00 08:30 08:31 08:31 Resp 18 18 18 Pulse Ox 93 93 93 O2 Delivery Room Air Room Air Room Air Room Air 11/15/16 11/15/16 11/15/16 11/15/16 09:30 10:37 10:44 11:07 Temp 97.8 97.8 Pulse 109 Resp 18 20 18 20 B/P 131/87 Pulse Ox 93 93 93 93 O2 Delivery Room Air Room Air Room Air Room Air 11/15/16 11/15/16 11/15/16 11/15/16 12:13 12:13 12:30 12:36 Resp 20 20 20 Pulse Ox 93 93 93 93 O2 Delivery Room Air Room Air Room Air Room Air Intake and Output 11/14/16 11/14/16 11/15/16 15:00 23:00 07:00 Intake Total 600 ml 420 ml 1100 ml Output Total 300 ml Balance 600 ml 120 ml 1100 ml JENNIFER WILLETT MD Nov 15, 2016 13:16
[2016-11-15 14:58] VITALS: BP 135/89
[2016-11-15 18:56] VITALS: BP 139/90
[2016-11-15] MEDS: AMITRIPTYLINE HCL 50 MG TABLET PO SCH (20:10)
[2016-11-15 23:00] VITALS: BP 128/82
[2016-11-16] MEDS: OXYCODONE IR 30 MG TABLET. PO SCH ×4 (00:47→12:29)
[2016-11-16] MEDS: FENTANYL PF 100 MCG/2 ML VIAL. IV PRN ×4 (00:47→11:07)
[2016-11-16 03:00] VITALS: BP 119/76
[2016-11-16 07:00] VITALS: BP 154/102
[2016-11-16] MEDS: CYCLOBENZAPRINE 10 MG TABLET. PO PRN (08:26)
[2016-11-16] MEDS: DOCUSATE SODIUM 100 MG CAPSULE PO SCH (08:26)
[2016-11-16] MEDS: GABAPENTIN 300 MG CAPSULE. PO SCH (08:26)
[2016-11-16] MEDS: ALPRAZOLAM 0.5 MG TABLET PO PRN (08:26)
[2016-11-16] MEDS: POLYETHYLENE GLYCOL 3350 17 GM PACKET. PO SCH (08:26)
[2016-11-16] MEDS: OXYCODONE ER 10 MG TAB.ER.12H. PO SCH (08:27)
[2016-11-16] MEDS: OXYCODONE/APAP 5/325 TABLET. PO PRN (08:27)
[2016-11-16] MEDS ORDERED: FENT1PAT17 TP (09:59)
--- NOTE | 2016-11-16 10:02 | PDOC3 ---
Discharge Summary Visit Information Date of Admission: Nov 12, 2016 Date of Discharge: Nov 16, 2016 Admitting Diagnosis Comment: 1. RSD flare 2. MS - stable - last MRI brain or 08/24 ok 3. HX of work related injury (electrocution) 4. Long nails, s/p clipping 11/13/16 Final Diagnosis Problems Medical Problems: (1) Intractable pain Status: Acute (2) Leg pain Status: Acute (3) Reflex sympathetic dystrophy of both lower extremities Status: Acute (4) RSD (reflex sympathetic dystrophy) Status: Acute Brief Hospital Course Allergies Allergies Coded Allergies Type Severity Reaction Last Updated Verified butorphanol Allergy Severe Shortness of Air 08/13/16 Yes ketorolac Allergy Severe Shortness of Air 08/13/16 Yes cephalexin Allergy Intermediate 07/18/16 Yes morphine Allergy Intermediate TOLERATES OXYCODONE 07/19/16 Yes Vital Signs Vital Signs Date Time Temp Pulse Resp B/P Pulse Ox O2 Delivery O2 Flow Rate FiO2 11/16/16 08:27 93 Room Air 11/16/16 07:00 98.0 102 22 154/102 98.0 Brief Hospital Course Mr. Alcaraz is a 36 old male klnown to me for sever RSD, HE would get hospitalized for flare control, Seen by pain mx last admit, did not want one this time, Stayed in house x 5 days to cont home meds plus fentanyl which he gets RTC q2 hrs, Toe nail clipping alos done bec nails were long and could not cut from home, Feels better, cleared from PT/OT Ready to dc RX for pain emds given Dw and pt and RN at bedside DIspO; home COnsults: none Discharge Information Condition at Discharge: Improved, Stable Disposition/Orders: D/C to Home Scheduled Amitriptyline Hcl (Amitriptyline Hcl) 50 MG PO QHS Docusate Sodium (Colace) 100 MG PO DAILY Gabapentin (Gabapentin) 300 MG PO TID Lidocaine (Lidocaine) 1 DAVID TP TID Oxycodone Hcl (Oxycodone Hcl) 30 MG PO Q4HRS Oxycodone Hcl (Oxycontin) 20 MG PO Q12HR Scheduled PRN Alprazolam (Xanax) 0.5 MG PO TID PRN PRN ANXIETY / AGITATION (Reported) Cyclobenzaprine Hcl (Cyclobenzaprine Hcl) 1 TAB PO TID PRN PRN MUSCLE PAIN Diphenhydramine Hcl (Benadryl) 25 MG PO PRN QHS PRN PRN INSOMNIA Oxycodone/Apap 5-325 (Percocet 5-325 Mg Tablet) 1 TAB PO PRN Q6HRS PRN PRN PAIN JENNIFER WILLETT MD Nov 16, 2016 10:02
[2016-11-16] MEDS ORDERED: FENTANYL 25MCG/HR PATCH. TD SCH (10:30)
[2016-11-16 10:44] VITALS: BP 134/92
[2016-11-16] MEDS: LIDOCAINE 5% TOPICAL OINTMENT 35GM TUBE. TP SCH (10:58)
== END 2016-11-16 14:51 | disposition home or self-care (01) | DRG 74 ==
LOC: ER 20:53 → 5 SOUTH 22:48 → OBSVTOIN 11-12 13:52
PROVIDERS: ADMIT Internal Medicine; ATTEND Internal Medicine
DX: G90.523 Complex regional pain syndrome I of lower limb, bilateral (principal); B35.1 Tinea unguium; L60.0 Ingrowing nail; Z88.6 Allergy status to analgesic agent; Z88.8 Allergy status to other drugs, medicaments and biological substances
CPT/HCPCS: 36415; 80048; 85027; 96374; 96375; 96376; G0378; G0379; J1170; J2405; J3010; J7040; 97110; 97116; 97530; 99285-25

== ENCOUNTER 2016-12-11 14:15 | Emergency (ER) | payer MEDICARE ==
[~2016-12-11] VITALS: Ht 177.8 cm; Wt 99.8 kg
[~2016-12-11 14:15] MED LIST changes: +FENT1PAT17 TP
[2016-12-11 14:20] VITALS: BP 184/95
[2016-12-11] MEDS ORDERED: PRED20TA PO (14:52)
--- NOTE | 2016-12-11 14:52 | PHYS DOC ---
Past Medical History Past Medical History: Other Additional Past Medical Histor: MS, RSD Past Surgical History: Other Additional Past Surgical Histo: nerve blocks, TENS, Alcohol Use: None Drug Use: None Adult General Chief Complaint Chief Complaint: BACK PAIN - NO INJURY [facility] HPI Patient is a 36 year old male presents to the emergency department stating that he has RSD. He states that he is having breakthrough pain. He states that over the weekend he has to do more than his normal daily activities due to family members being sick. Patient states that he takes oxycodone 20 mg 4 times a day. He states that he is having breakthrough pain and is requesting a Dilaudid injection. Patient states that he is allergic to morphine he states that he is also been taken naproxen in between his dosages of oxycodone with no relief. Patient denies any new symptoms at this time. He denies any trauma or injuries. Review of Systems Review of Systems Constitutional: Denies fever or chills [] Eyes: Denies change in visual acuity, redness, or eye pain [] HENT: Denies nasal congestion or sore throat [] Respiratory: Denies cough or shortness of breath [] Cardiovascular: No additional information not addressed in HPI [] GI: Denies abdominal pain, nausea, vomiting, bloody stools or diarrhea [] : Denies dysuria or hematuria [] Musculoskeletal: back pain and radiation of pain to his legs Integument: Denies rash or skin lesions [] Neurologic: Denies headache, focal weakness or sensory changes [] Allergies Allergies Allergies Coded Allergies Type Severity Reaction Last Updated Verified butorphanol Allergy Severe Shortness of Air 08/13/16 Yes ketorolac Allergy Severe Shortness of Air 08/13/16 Yes cephalexin Allergy Intermediate 07/18/16 Yes morphine Allergy Intermediate TOLERATES OXYCODONE 07/19/16 Yes Physical Exam Physical Exam Constitutional: Well developed, well nourished, no acute distress, non-toxic appearance. [] HENT: Normocephalic, atraumatic, bilateral external ears normal, oropharynx moist, no oral exudates, nose normal. [] Eyes: PERRLA, EOMI, conjunctiva normal, no discharge. [] Neck: Normal range of motion, no tenderness, supple, no stridor. [] Cardiovascular:Heart rate regular rhythm, no murmur [] Lungs & Thorax: Bilateral breath sounds clear to auscultation [] Skin: Warm, dry, no erythema, no rash. [] Back: No tenderness Extremities: No tenderness, no cyanosis, no clubbing, ROM intact, no edema. Peripheral pulses 2+ cap refill brisk less than 2 seconds. Patient able to ambulate with a good steady gait. Neurologic: Alert and oriented X 3, normal motor function, normal sensory function, no focal deficits noted. [] Psychologic: Affect normal, judgement normal, mood normal. [] Current Patient Data Vital Signs Vital Signs Date Time Temp Pulse Resp B/P Pulse Ox O2 Delivery O2 Flow Rate FiO2 12/11/16 14:20 97.7 113 22 184/95 99 Room Air 97.7 EKG EKG [] Radiology/Procedures Radiology/Procedures [] Course & Med Decision Making Course & Med Decision Making Pertinent Labs and Imaging studies reviewed. (See chart for details) Spoke with patient in regards to being discharged with providing him with Dilaudid injection as he is taking oxycodone 20 mg every 4 hours. Offered patient Solu-Medrol IM injection in which patient stated that he is fine with. Upon obtaining [facility] information patient has had a 45 oxycodone filled on of 20 mg. He was also prescribed on 11/30 oxycodone 20 mg 45 tablets. On 11/25 he was a filled with 1 mg of oxycodone 45 tablets. And on 11/21 he was provided oxycodone 30 mg 30 tablets. With the amount of oxycodone that the patient has had prescribed and concerned also with the patient and his narcotic use. A shunt will be provided with Solu-Medrol here in the emergency department he'll be provided with the prednisone injection with recommendations to follow-up with his primary care physician or pain management physician for further evaluation and medication regimen. Patient agrees with discharge instructions treatment regimens and follow-up recommendations. Dragon Disclaimer Dragon Disclaimer This electronic medical record was generated, in whole or in part, using a voice recognition dictation system. Departure Departure Impression: Primary Impression: Chronic pain Disposition: HOME, SELF-CARE Condition: STABLE Referrals: UNKNOWN PCP NAME (PCP) Patient Instructions: Chronic Pain Additional Instructions: Activity as tolerated. Medications as prescribed in which you already have at home. Follow-up to primary care physician or pain management in regards to further medication regimen. Ice packs on 20 minutes off 20 minutes several times a day. Return to emergency prior signs symptoms of become worse. Scripts Prednisone 20 Mg [id number] Mg PO DAILY #10 TAB Prov:AURELIO BUENROSTRO APRN 12/11/16 AURELIO BUENROSTRO APRN Dec 11, 2016 14:52
[2016-12-11] MEDS ORDERED: methylPREDNISolone SOD SUCC PF 125 MG/2 ML VIAL. IM ONE (15:00)
== END 2016-12-11 14:58 | disposition home or self-care (01) ==
LOC: ER 14:15
DX: G89.29 Other chronic pain (principal); M54.9 Dorsalgia, unspecified; G90.59 Complex regional pain syndrome I of other specified site; G35 Multiple sclerosis; Z88.5 Allergy status to narcotic agent; Z88.1 Allergy status to other antibiotic agents; Z88.8 Allergy status to other drugs, medicaments and biological substances
CPT/HCPCS: 96372; 99283; J2930

== ENCOUNTER 2017-04-05 07:24 | Emergency (ER) | payer MEDICARE ==
[~2017-04-05 07:24] MED LIST changes: +BENZOCAINE 20% TP; +DOCU-109 PO; -DOCU-27 PO; +FURO-69 PO; +MULT-208 PO; +OMEG1CAP6 PO; +OXYC10TA PO; -OXYC10TA32 PO; +OXYC10TA45 PO; +OXYC40TA21 PO; +PRED20TA PO
[2017-04-05 07:30] VITALS: BP 177/100
[2017-04-05] MEDS ORDERED: HYDROcodone/APAP 5/325MG 1 TAB TABLET PO ONE (07:45)
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
== END 2017-04-05 08:01 | disposition home or self-care (01) ==
LOC: ER 07:24
DX: Z76.0 Encounter for issue of repeat prescription (principal); F11.10 Opioid abuse, uncomplicated; G89.29 Other chronic pain; Z88.8 Allergy status to other drugs, medicaments and biological substances; Z88.1 Allergy status to other antibiotic agents; Z88.5 Allergy status to narcotic agent
CPT/HCPCS: 99282

== ENCOUNTER 2017-08-11 07:33 | Inpatient (IN) | payer MEDICARE ==
[~2017-08-11] VITALS: Ht 177.8 cm; Wt 105.7 kg
--- NOTE | 2017-08-11 07:57 | PHYS DOC ---
Past Medical History Past Medical History: Other Additional Past Medical Histor: MS, RSD, chronic pain Past Surgical History: Other Additional Past Surgical Histo: nerve blocks, TENS Alcohol Use: None Drug Use: Opiates Adult General Chief Complaint Chief Complaint: OTHER COMPLAINTS [facility] HPI Patient is a 37 year old male with a history of chronic pain and RSD presents to the ED complaining of bilateral lower extremity pain times one day. States the pain worsened yesterday. Patient takes chronic pain medicine at home, hydrocodone. States its not even touching his pain. Patient goes to chronic pain management at [facility]. Describes the pain as shock like. Rates the pain as 10/10. Radiates down both legs. States same symptoms as previous exacerbations of pain in the past. Denies chest pain, shortness of breath, dizziness, weakness, nausea/vomiting, abdominal pain, body aches, fever. Review of Systems Review of Systems Constitutional: Denies fever or chills [] Eyes: Denies change in visual acuity, redness, or eye pain [] HENT: Denies nasal congestion or sore throat [] Respiratory: Denies cough or shortness of breath [] Cardiovascular: No additional information not addressed in HPI [] GI: Denies abdominal pain, nausea, vomiting, bloody stools or diarrhea [] : Denies dysuria or hematuria [] Musculoskeletal: Denies back pain or joint pain [] Integument: Denies rash or skin lesions [] Neurologic: Denies headache, focal weakness or sensory changes [] Endocrine: Denies polyuria or polydipsia [] All other systems were reviewed and found to be within normal limits, except as documented in this note. Current Medications Current Medications Current Medications Medications (Trade) Dose Ordered Sig/Juan A Start Time Stop Time Status Last Admin Dose Admin Hydromorphone HCl (Dilaudid) 1 mg 1X ONCE 08/11/17 08:30 08/11/17 08:31 DC 08/11/17 08:36 1 MG Ondansetron HCl (Zofran) 4 mg 1X ONCE 08/11/17 08:00 08/11/17 08:01 DC 08/11/17 08:10 4 MG Allergies Allergies Allergies Coded Allergies Type Severity Reaction Last Updated Verified butorphanol Allergy Severe Shortness of Air 08/13/16 Yes ketorolac Allergy Severe Shortness of Air 08/13/16 Yes cephalexin Allergy Intermediate 07/18/16 Yes morphine Allergy Intermediate TOLERATES OXYCODONE and DILAUDID 03/16/17 Yes vancomycin Allergy Intermediate rash 03/12/17 Yes Physical Exam Physical Exam Constitutional: Well developed, well nourished, no acute distress, non-toxic appearance. [] HENT: Normocephalic, atraumatic, bilateral external ears normal, oropharynx moist, no oral exudates, nose normal. [] Eyes: PERRLA, EOMI, conjunctiva normal, no discharge. [] Neck: Normal range of motion, no tenderness, supple, no stridor. [] Cardiovascular:Heart rate regular rhythm, no murmur [] Lungs & Thorax: Bilateral breath sounds clear to auscultation [] Abdomen: Bowel sounds normal, soft, no tenderness, no masses, no pulsatile masses. [] Skin: Warm, dry, no erythema, no rash. [] Back: No tenderness, no CVA tenderness. [] Extremities: No tenderness, no cyanosis, no clubbing, ROM intact, no edema. [] Neurologic: Alert and oriented X 3, normal motor function, normal sensory function, no focal deficits noted. [] Psychologic: Affect normal, judgement normal, mood normal. [] Current Patient Data Vital Signs Vital Signs Date Time Temp Pulse Resp B/P (MAP) Pulse Ox O2 Delivery O2 Flow Rate FiO2 08/11/17 08:19 98.6 92 16 172/112 (132) 99 Room Air 98.6 Lab Values Laboratory Tests Test 08/11/17 08:12 08/11/17 08:15 White Blood Count 8.8 x10^3/uL (4.0-11.0) Red Blood Count 5.49 x10^6/uL (4.30-5.70) Hemoglobin 14.9 g/dL (13.0-17.5) Hematocrit 45.7 % (39.0-53.0) Mean Corpuscular Volume 83 fL (79-100) Mean Corpuscular Hemoglobin 27 pg (25-35) Mean Corpuscular Hemoglobin Concent 33 g/dL (31-37) Red Cell Distribution Width 14.8 % (11.5-14.5) H Platelet Count 354 x10^3/uL (140-400) Sodium Level 140 mmol/L (136-145) Potassium Level 4.5 mmol/L (3.5-5.1) Chloride Level 104 mmol/L (98-107) Carbon Dioxide Level 29 mmol/L (21-32) Anion Gap 7 (6-14) Blood Urea Nitrogen 11 mg/dL (8-26) Creatinine 1.0 mg/dL (0.7-1.3) Estimated GFR (Cockcroft-Gault) 83.2 BUN/Creatinine Ratio 11 (6-20) Glucose Level 108 mg/dL (70-99) H Calcium Level 10.1 mg/dL (8.5-10.1) Total Bilirubin 0.3 mg/dL (0.2-1.0) Aspartate Amino Transferase (AST) 32 U/L (15-37) Alanine Aminotransferase (ALT) 63 U/L (16-63) Alkaline Phosphatase 109 U/L (46-116) Total Protein 8.9 g/dL (6.4-8.2) H Albumin 4.0 g/dL (3.4-5.0) Albumin/Globulin Ratio 0.8 (1.0-1.7) L Urine Collection Type Unknown Urine Color Yellow Urine Clarity Clear Urine pH 7.0 Urine Specific [place] 1.010 Urine Protein Negative mg/dL (NEG-TRACE) Urine Glucose (UA) Negative mg/dL (NEG) Urine Ketones (Stick) Negative mg/dL (NEG) Urine Blood Negative (NEG) Urine Nitrite Negative (NEG) Urine Bilirubin Negative (NEG) Urine Urobilinogen Dipstick 0.2 mg/dL (0.2 mg/dL) Urine Leukocyte Esterase Negative (NEG) Urine RBC 0 /HPF (0-2) Urine WBC 0 /HPF (0-4) Urine Squamous Epithelial Cells Mod /LPF Urine Amorphous Sediment Present /HPF Urine Bacteria 0 /HPF (0-FEW) Laboratory Tests 08/11/17 08:12 Laboratory Tests 08/11/17 08:12 EKG EKG [] Radiology/Procedures Radiology/Procedures [] Course & Med Decision Making Course & Med Decision Making Pertinent Labs and Imaging studies reviewed. (See chart for details) [] Patient having a lot of pain requiring IV medication for relief. Discussed case with hospitalist, Dr. Monroy. Agrees to admission further management patient. Patient stable for admission. Dragon Disclaimer Dragon Disclaimer This electronic medical record was generated, in whole or in part, using a voice recognition dictation system. Departure Departure Impression: Primary Impression: RSD (reflex sympathetic dystrophy) Additional Impression: Intractable pain Disposition: ADMITTED INPATIENT Admitting Physician: Other (Reusch) Condition: STABLE Referrals: UNKNOWN PCP NAME (PCP) Problem Qualifiers GOKUL ALMANZAR Aug 11, 2017 07:57
[2017-08-11] MEDS ORDERED: HYDROmorphone 2 MG/ML VIAL IV ONE ×2 (08:00→08:30)
[2017-08-11] MEDS ORDERED: ONDANSETRON PF 4 MG/2 ML VIAL. IV ONE (08:00)
[2017-08-11 08:26] LABS: HEMATOCRIT 45.7 % (39.0-53.0); HEMOGLOBIN 14.9 g/dL (13.0-17.5); RED BLOOD COUNT 5.49 x10^6/uL (4.30-5.70); RED CELL DISTRIBUTION WIDTH 14.8 % (11.5-14.5); WHITE BLOOD COUNT 8.8 x10^3/uL (4.0-11.0)
[2017-08-11 08:35] LABS: CALCIUM 10.1 mg/dL (8.5-10.1); GFR 83.2; POTASSIUM 4.5 mmol/L (3.5-5.1)
[2017-08-11 08:41] LABS: ALBUMIN/GLOBULIN RATIO 0.8 (1.0-1.7); TOTAL BILIRUBIN 0.3 mg/dL (0.2-1.0); TOTAL PROTEIN 8.9 g/dL (6.4-8.2)
[2017-08-11] MEDS ORDERED: ONDANSETRON PF 4 MG/2 ML VIAL. IV PRN (08:45)
[2017-08-11 09:05] LABS: BILIRUBIN,URINE NEGATIVE (NEG); GLUCOSE,URINE NEGATIVE (NEG); NITRITE,URINE NEGATIVE (NEG); PROTEIN,URINE NEGATIVE (NEG-TRACE); UROBILINOGEN,URINE 0.2 mg/dL (0.2 mg/dL)
[2017-08-11 09:12] LABS: BACTERIA,URINE 0 /HPF (0-FEW); RBC,URINE 0 /HPF (0-2); SQUAMOUS EPITHELIAL CELL,UR MOD /LPF; WBC,URINE 0 /HPF (0-4)
[2017-08-11 10:32] VITALS: BP 145/102
[2017-08-11 10:33] VITALS: BP 145/102
[2017-08-11] MEDS: OMEGA-3 FATTY ACIDS/FISH OIL 1,000 MG CAPSULE. PO SCH (10:57)
[2017-08-11] MEDS: HYDROmorphone 2 MG/ML VIAL IV PRN ×5 (10:58→23:10)
[2017-08-11] MEDS ORDERED: oxyCODONE ER 40 MG TAB.ER.12H PO SCH (11:00)
[2017-08-11] MEDS: DOCUSATE SODIUM 100 MG CAPSULE. PO SCH (11:00)
[2017-08-11] MEDS ORDERED: HYDROmorphone 2 MG/ML VIAL IV SCH (12:00)
[2017-08-11] MEDS: CYCLOBENZAPRINE 10 MG TABLET. PO PRN ×2 (13:46→20:50)
[2017-08-11] MEDS: BENZOCAINE 20% TOPICAL AEROSOL SPRAY 57GM CAN. TP PRN ×2 (13:49→20:44)
[2017-08-11] MEDS: ALPRAZolam 0.5 MG TABLET PO PRN ×2 (13:50→20:50)
[2017-08-11] MEDS ORDERED: LIDOCAINE 5% TOPICAL OINTMENT 35GM TUBE. TP SCH (14:00)
[2017-08-11 14:46] VITALS: BP 146/95
[2017-08-11 19:00] VITALS: BP_SYST 137; BP_SYST 138; BP_DIAS 54; BP_DIAS 82
[2017-08-11] MEDS: AMITRIPTYLINE HCL 50 MG TABLET PO SCH (20:41)
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
[2017-08-11] MEDS: oxyCODONE IR 5 MG TABLET PO SCH (23:10)
[2017-08-11] MEDS: diphenhydrAMINE HCL 25 MG CAPSULE PO PRN (23:22)
[2017-08-11 23:35] VITALS: BP 124/91
[2017-08-12 03:28] VITALS: BP 135/94
[2017-08-12] MEDS: oxyCODONE IR 5 MG TABLET PO SCH ×6 (03:34→23:49)
[2017-08-12] MEDS: HYDROmorphone 2 MG/ML VIAL IV PRN ×9 (03:34→21:43)
[2017-08-12] MEDS: CYCLOBENZAPRINE 10 MG TABLET. PO PRN ×3 (05:09→20:28)
[2017-08-12] MEDS: ALPRAZolam 0.5 MG TABLET PO PRN ×3 (05:09→20:30)
[2017-08-12 06:00] LABS: BASO % 1 % (0-3); EOS % 5 % (0-3); HEMATOCRIT 41.7 % (39.0-53.0); HEMOGLOBIN 13.4 g/dL (13.0-17.5); LYMPH # 2.1 x10^3/uL (1.0-4.8); LYMPH % 27 % (24-48); MEAN CORPUSCULAR HEMOGLOBIN 27 pg (25-35); MEAN CORPUSCULAR HGB CONC 32 g/dL (31-37); MEAN CORPUSCULAR VOLUME 84 fL (79-100); MONO % 11 % (0-9); NEUT % 57 % (31-73); PLATELET COUNT 305 x10^3/uL (140-400); RED BLOOD COUNT 4.99 x10^6/uL (4.30-5.70); RED CELL DISTRIBUTION WIDTH 14.8 % (11.5-14.5); WHITE BLOOD COUNT 7.7 x10^3/uL (4.0-11.0)
[2017-08-12 06:27] LABS: ALBUMIN 3.3 g/dL (3.4-5.0); ALBUMIN/GLOBULIN RATIO 0.8 (1.0-1.7); CALCIUM 9.3 mg/dL (8.5-10.1); CREATININE 0.9 mg/dL (0.7-1.3); GFR 93.9; POTASSIUM 4.1 mmol/L (3.5-5.1); TOTAL BILIRUBIN 0.2 mg/dL (0.2-1.0); TOTAL PROTEIN 7.3 g/dL (6.4-8.2)
[2017-08-12 07:00] VITALS: BP 142/89
[2017-08-12] MEDS: DOCUSATE SODIUM 100 MG CAPSULE. PO SCH (08:04)
[2017-08-12] MEDS: OMEGA-3 FATTY ACIDS/FISH OIL 1,000 MG CAPSULE. PO SCH (08:04)
[2017-08-12] MEDS: MULTIVITAMIN with MINERAL TABLET. PO SCH (08:16)
[2017-08-12] MEDS: BENZOCAINE 20% TOPICAL AEROSOL SPRAY 57GM CAN. TP PRN ×4 (08:18→21:43)
--- NOTE | 2017-08-12 08:29 | PDOC ---
PROGRESS NOTES Chief Complaint Chief Complaint reflex sympathetic dystrophy exacerbation. acute on chronic pain obesity, BMI 37 weakness, debility due to #1 History of Present Illness History of Present Illness pain persists, cannot stand, feet are painful exacerbated by trying to help someone work on their floor, Vitals Vitals Vital Signs Date Time Temp Pulse Resp B/P (MAP) Pulse Ox O2 Delivery O2 Flow Rate FiO2 08/12/17 08:17 93 Room Air 08/12/17 07:00 97.4 78 20 142/89 (106) 97.4 Physical Exam General: Oriented X3, Cooperative, No acute distress Heart: Regular rate, No murmurs Lungs: Clear Extremities: No clubbing, Other (feet cold, very tender, not reddened, ) Skin: No rashes Labs LABS Laboratory Tests Test 08/12/17 04:55 08/12/17 05:15 White Blood Count 7.7 x10^3/uL (4.0-11.0) Red Blood Count 4.99 x10^6/uL (4.30-5.70) Hemoglobin 13.4 g/dL (13.0-17.5) Hematocrit 41.7 % (39.0-53.0) Mean Corpuscular Volume 84 fL (79-100) Mean Corpuscular Hemoglobin 27 pg (25-35) Mean Corpuscular Hemoglobin Concent 32 g/dL (31-37) Red Cell Distribution Width 14.8 % (11.5-14.5) Platelet Count 305 x10^3/uL (140-400) Neutrophils (%) (Auto) 57 % (31-73) Lymphocytes (%) (Auto) 27 % (24-48) Monocytes (%) (Auto) 11 % (0-9) Eosinophils (%) (Auto) 5 % (0-3) Basophils (%) (Auto) 1 % (0-3) Neutrophils # (Auto) 4.4 x10^3uL (1.8-7.7) Lymphocytes # (Auto) 2.1 x10^3/uL (1.0-4.8) Monocytes # (Auto) 0.9 x10^3/uL (0.0-1.1) Eosinophils # (Auto) 0.4 x10^3/uL (0.0-0.7) Basophils # (Auto) 0.0 x10^3/uL (0.0-0.2) Sodium Level 140 mmol/L (136-145) Potassium Level 4.1 mmol/L (3.5-5.1) Chloride Level 102 mmol/L (98-107) Carbon Dioxide Level 30 mmol/L (21-32) Anion Gap 8 (6-14) Blood Urea Nitrogen 12 mg/dL (8-26) Creatinine 0.9 mg/dL (0.7-1.3) Estimated GFR (Cockcroft-Gault) 93.9 BUN/Creatinine Ratio 13 (6-20) Glucose Level 107 mg/dL (70-99) Calcium Level 9.3 mg/dL (8.5-10.1) Total Bilirubin 0.2 mg/dL (0.2-1.0) Aspartate Amino Transf (AST/SGOT) 22 U/L (15-37) Alanine Aminotransferase (ALT/SGPT) 53 U/L (16-63) Alkaline Phosphatase 93 U/L (46-116) Total Protein 7.3 g/dL (6.4-8.2) Albumin 3.3 g/dL (3.4-5.0) Albumin/Globulin Ratio 0.8 (1.0-1.7) Review of Systems Review of Systems no n.v.d pain persists, normal stools, 2x a day Assessment and Plan Assessmemt and Plan Problems Medical Problems: (1) Intractable pain Status: Acute (2) RSD (reflex sympathetic dystrophy) Status: Acute Problems: Comment Review of Relevant I have reviewed the following items mali (where applicable) has been applied. Labs Laboratory Tests Test 08/11/17 08:12 08/11/17 08:15 08/12/17 04:55 08/12/17 05:15 White Blood Count 8.8 x10^3/uL (4.0-11.0) 7.7 x10^3/uL (4.0-11.0) Red Blood Count 5.49 x10^6/uL (4.30-5.70) 4.99 x10^6/uL (4.30-5.70) Hemoglobin 14.9 g/dL (13.0-17.5) 13.4 g/dL (13.0-17.5) Hematocrit 45.7 % (39.0-53.0) 41.7 % (39.0-53.0) Mean Corpuscular Volume 83 fL (79-100) 84 fL (79-100) Mean Corpuscular Hemoglobin 27 pg (25-35) 27 pg (25-35) Mean Corpuscular Hemoglobin Concent 33 g/dL (31-37) 32 g/dL (31-37) Red Cell Distribution Width 14.8 % (11.5-14.5) 14.8 % (11.5-14.5) Platelet Count 354 x10^3/uL (140-400) 305 x10^3/uL (140-400) Sodium Level 140 mmol/L (136-145) 140 mmol/L (136-145) Potassium Level 4.5 mmol/L (3.5-5.1) 4.1 mmol/L (3.5-5.1) Chloride Level 104 mmol/L (98-107) 102 mmol/L (98-107) Carbon Dioxide Level 29 mmol/L (21-32) 30 mmol/L (21-32) Anion Gap 7 (6-14) 8 (6-14) Blood Urea Nitrogen 11 mg/dL (8-26) 12 mg/dL (8-26) Creatinine 1.0 mg/dL (0.7-1.3) 0.9 mg/dL (0.7-1.3) Estimated GFR (Cockcroft-Gault) 83.2 93.9 BUN/Creatinine Ratio 11 (6-20) 13 (6-20) Glucose Level 108 mg/dL (70-99) 107 mg/dL (70-99) Calcium Level 10.1 mg/dL (8.5-10.1) 9.3 mg/dL (8.5-10.1) Total Bilirubin 0.3 mg/dL (0.2-1.0) 0.2 mg/dL (0.2-1.0) Aspartate Amino Transf (AST/SGOT) 32 U/L (15-37) 22 U/L (15-37) Alanine Aminotransferase (ALT/SGPT) 63 U/L (16-63) 53 U/L (16-63) Alkaline Phosphatase 109 U/L (46-116) 93 U/L (46-116) Total Protein 8.9 g/dL (6.4-8.2) 7.3 g/dL (6.4-8.2) Albumin 4.0 g/dL (3.4-5.0) 3.3 g/dL (3.4-5.0) Albumin/Globulin Ratio 0.8 (1.0-1.7) 0.8 (1.0-1.7) Urine Collection Type Unknown Urine Color Yellow Urine Clarity Clear Urine pH 7.0 Urine Specific Prince 1.010 Urine Protein Negative mg/dL (NEG-TRACE) Urine Glucose (UA) Negative mg/dL (NEG) Urine Ketones (Stick) Negative mg/dL (NEG) Urine Blood Negative (NEG) Urine Nitrite Negative (NEG) Urine Bilirubin Negative (NEG) Urine Urobilinogen Dipstick 0.2 mg/dL (0.2 mg/dL) Urine Leukocyte Esterase Negative (NEG) Urine RBC 0 /HPF (0-2) Urine WBC 0 /HPF (0-4) Urine Squamous Epithelial Cells Mod /LPF Urine Amorphous Sediment Present /HPF Urine Bacteria 0 /HPF (0-FEW) Neutrophils (%) (Auto) 57 % (31-73) Lymphocytes (%) (Auto) 27 % (24-48) Monocytes (%) (Auto) 11 % (0-9) Eosinophils (%) (Auto) 5 % (0-3) Basophils (%) (Auto) 1 % (0-3) Neutrophils # (Auto) 4.4 x10^3uL (1.8-7.7) Lymphocytes # (Auto) 2.1 x10^3/uL (1.0-4.8) Monocytes # (Auto) 0.9 x10^3/uL (0.0-1.1) Eosinophils # (Auto) 0.4 x10^3/uL (0.0-0.7) Basophils # (Auto) 0.0 x10^3/uL (0.0-0.2) Laboratory Tests Test 08/12/17 04:55 08/12/17 05:15 White Blood Count 7.7 x10^3/uL (4.0-11.0) Red Blood Count 4.99 x10^6/uL (4.30-5.70) Hemoglobin 13.4 g/dL (13.0-17.5) Hematocrit 41.7 % (39.0-53.0) Mean Corpuscular Volume 84 fL (79-100) Mean Corpuscular Hemoglobin 27 pg (25-35) Mean Corpuscular Hemoglobin Concent 32 g/dL (31-37) Red Cell Distribution Width 14.8 % (11.5-14.5) Platelet Count 305 x10^3/uL (140-400) Neutrophils (%) (Auto) 57 % (31-73) Lymphocytes (%) (Auto) 27 % (24-48) Monocytes (%) (Auto) 11 % (0-9) Eosinophils (%) (Auto) 5 % (0-3) Basophils (%) (Auto) 1 % (0-3) Neutrophils # (Auto) 4.4 x10^3uL (1.8-7.7) Lymphocytes # (Auto) 2.1 x10^3/uL (1.0-4.8) Monocytes # (Auto) 0.9 x10^3/uL (0.0-1.1) Eosinophils # (Auto) 0.4 x10^3/uL (0.0-0.7) Basophils # (Auto) 0.0 x10^3/uL (0.0-0.2) Sodium Level 140 mmol/L (136-145) Potassium Level 4.1 mmol/L (3.5-5.1) Chloride Level 102 mmol/L (98-107) Carbon Dioxide Level 30 mmol/L (21-32) Anion Gap 8 (6-14) Blood Urea Nitrogen 12 mg/dL (8-26) Creatinine 0.9 mg/dL (0.7-1.3) Estimated GFR (Cockcroft-Gault) 93.9 BUN/Creatinine Ratio 13 (6-20) Glucose Level 107 mg/dL (70-99) Calcium Level 9.3 mg/dL (8.5-10.1) Total Bilirubin 0.2 mg/dL (0.2-1.0) Aspartate Amino Transf (AST/SGOT) 22 U/L (15-37) Alanine Aminotransferase (ALT/SGPT) 53 U/L (16-63) Alkaline Phosphatase 93 U/L (46-116) Total Protein 7.3 g/dL (6.4-8.2) Albumin 3.3 g/dL (3.4-5.0) Albumin/Globulin Ratio 0.8 (1.0-1.7) Medications Current Medications Hydromorphone HCl (Dilaudid) 1 mg 1X ONCE IV Last administered on 08/11/17 08 :10; Start 08/11/17 at 08:00; Stop 08/11/17 at 08:01; Status DC Ondansetron HCl (Zofran) 4 mg 1X ONCE IV Last administered on 08/11/17 08:10 ; Start 08/11/17 at 08:00; Stop 08/11/17 at 08:01; Status DC Hydromorphone HCl (Dilaudid) 1 mg 1X ONCE IV Last administered on 08/11/17 08 :36; Start 08/11/17 at 08:30; Stop 08/11/17 at 08:31; Status DC Ondansetron HCl (Zofran) 4 mg PRN Q8HRS PRN IV NAUSEA/VOMITING; Start 08/11/17 at 08:45; Stop 08/12/17 at 08:44 Hydromorphone HCl (Dilaudid) 1 mg Q4HRS IV ; Start 08/11/17 at 12:00; Stop 08/11 at 12:00; Status DC Alprazolam (Xanax) 0.5 mg PRN TID PRN PO ANXIETY / AGITATION Last administered on 08/12/17 05:09; Start 08/11/17 at 10:30 Amitriptyline HCl (Amitriptyline HCl) 50 mg QHS PO Last administered on 20:41; Start 08/11/17 at 21:00 Cyclobenzaprine HCl (Flexeril) 10 mg PRN TID PRN PO MUSCLE PAIN Last administered on 08/12/17 05:09; Start 08/11/17 at 10:30 Diphenhydramine HCl (Benadryl) 25 mg PRN QHS PRN PO INSOMNIA Last administered on 08/11/17 23:22; Start 08/11/17 at 10:30 Docusate Sodium (Colace) 100 mg DAILY PO Last administered on 08/12/17 08:04; Start 08/11/17 at 11:00 Lidocaine (Xylocaine) 1 maggi TID TP ; Start 08/11/17 at 14:00; Stop 08/11/17 at 20:23; Status DC Fish Oil (Fish Oil) 1,000 mg DAILY PO Last administered on 08/12/17 08:04; Start 08/11/17 at 10:30 Oxycodone HCl (OxyCONTIN) 40 mg BID PO Last administered on 08/11/17 10:57; Start 08/11/17 at 11:00; Stop 08/11/17 at 20:23; Status DC Multivitamins (Thera M Plus) 1 tab DAILY PO Last administered on 08/12/17 08: 16; Start 08/12/17 at 09:00 Hydromorphone HCl (Dilaudid) 2 mg PRN Q2HRS PRN IV SEVERE PAIN Last administered on 08/12/17 08:17; Start 08/11/17 at 10:40 Hydrocortisone (Cortaid) 1 maggi TID PRN PRN TP DRY SKIN / SCALING; Start at 11:45 Benzocaine (Americaine) 1 spray PRN Q4HRS PRN TP PAIN Last administered on 08/11 20:44; Start 08/11/17 at 12:00 Oxycodone HCl (Roxicodone) 20 mg Q4HRS PO Last administered on 08/12/17 08:04 ; Start 08/12/17 at 00:00 Active Scripts Active Xanax (Alprazolam) 0.5 Mg Tablet 0.5 Mg PO TID PRN Oxycontin (Oxycodone HCl) 40 Mg Tab.er.12h 40 Mg PO BID Lasix (Furosemide) 20 Mg Tablet 1 Tab PO DAILY Cyclobenzaprine Hcl 10 Mg Tablet 1 Tab PO TID PRN Gabapentin 300 Mg Capsule 300 Mg PO TID Lidocaine 35.44 Gm Oint...g. 1 Maggi TP TID Amitriptyline Hcl 50 Mg Tablet 50 Mg PO QHS Benadryl (Diphenhydramine Hcl) 25 Mg Capsule 25 Mg PO PRN QHS PRN Colace (Docusate Sodium) 100 Mg Capsule 100 Mg PO DAILY Oxycodone Hcl 30 Mg Tablet 30 Mg PO Q4HRS Reported Multi-Day Vitamins (Multivitamin) 1 Each Tablet 1 Tab PO DAILY Fish Oil 1,000 Mg Capsule (Brightwood-3 Fatty Acids/Fish Oil) 1 Each Capsule 1 Each PO Vitals/I & O Vital Sign - Last 24 Hours 08/11/17 08/11/17 08/11/17 08/11/17 08:36 09:15 09:15 10:32 Temp 97.6 97.6 Pulse 95 Resp 16 16 16 17 B/P (MAP) 145/102 (116) Pulse Ox 99 99 97 O2 Delivery Room Air 08/11/17 08/11/17 08/11/17 08/11/17 10:33 10:57 10:58 13:45 Temp 97.6 97.6 Pulse 95 Resp 17 16 16 16 B/P (MAP) 145/102 (116) Pulse Ox 97 97 97 97 O2 Delivery Room Air 08/11/17 08/11/17 08/11/17 08/11/17 14:46 14:57 16:07 16:37 Temp 97.9 97.9 Pulse 81 Resp 18 16 16 16 B/P (MAP) 146/95 (112) Pulse Ox 94 94 94 O2 Delivery Room Air 08/11/17 08/11/17 08/11/17 08/11/17 19:00 20:42 23:10 23:35 Temp 98.7 97.7 98.7 97.7 Pulse 91 95 Resp 19 18 20 B/P (MAP) 138/82 (100) 124/91 (102) Pulse Ox 90 96 O2 Delivery Room Air Room Air Room Air 08/11/17 08/12/17 08/12/17 08/12/17 23:40 03:28 04:38 07:00 Temp 98.6 97.4 98.6 97.4 Pulse 77 78 Resp 20 20 B/P (MAP) 135/94 (108) 142/89 (106) Pulse Ox 93 97 O2 Delivery Room Air Room Air Room Air Room Air 08/12/17 08/12/17 08/12/17 08/12/17 07:27 08:04 08:07 08:17 Pulse Ox 93 93 93 O2 Delivery Room Air Room Air Intake and Output 08/11/17 08/11/17 08/12/17 15:00 23:00 07:00 Intake Total 400 ml 750 ml Output Total 900 ml 1100 ml Balance -500 ml -350 ml BUTCH ERNST MD Aug 12, 2017 08:29
[2017-08-12] MEDS ORDERED: POLYETHYLENE GLYCOL 3350 17 GM PACKET. PO PRN (08:30)
[2017-08-12 10:51] VITALS: BP 120/57
[2017-08-12 15:00] VITALS: BP 134/92
[2017-08-12] MEDS: HYDROCORTISONE 1% TOPICAL OINTMENT 30GM TUBE. TP PRN ×2 (15:18→20:30)
[2017-08-12 19:00] VITALS: BP 122/69
[2017-08-12] MEDS: AMITRIPTYLINE HCL 50 MG TABLET PO SCH (20:26)
[2017-08-12 23:00] VITALS: BP 124/83
[2017-08-13] MEDS: BENZOCAINE 20% TOPICAL AEROSOL SPRAY 57GM CAN. TP PRN ×5 (01:54→21:36)
[2017-08-13] MEDS: HYDROmorphone 2 MG/ML VIAL IV PRN ×10 (01:55→21:36)
[2017-08-13 03:00] VITALS: BP 126/83
[2017-08-13] MEDS: oxyCODONE IR 5 MG TABLET PO SCH ×5 (03:56→19:40)
[2017-08-13 07:00] VITALS: BP 130/87
[2017-08-13] MEDS: OMEGA-3 FATTY ACIDS/FISH OIL 1,000 MG CAPSULE. PO SCH (07:51)
[2017-08-13] MEDS: MULTIVITAMIN with MINERAL TABLET. PO SCH (07:51)
[2017-08-13] MEDS: DOCUSATE SODIUM 100 MG CAPSULE. PO SCH (07:51)
[2017-08-13] MEDS: CYCLOBENZAPRINE 10 MG TABLET. PO PRN ×2 (08:04→17:06)
[2017-08-13] MEDS: ALPRAZolam 0.5 MG TABLET PO PRN ×2 (08:04→17:14)
--- NOTE | 2017-08-13 13:43 | PDOC ---
SUBJECTIVE Subjective Patient seen and examined at bedside still complains of pain on his feet bilaterally its better than yesterday. Patient denies any chest pain, fever, chills, nausea, and vomiting. OBJECTIVE Vital Signs Vital Signs Date Time Temp Pulse Resp B/P (MAP) Pulse Ox O2 Delivery O2 Flow Rate FiO2 08/13/17 12:54 97 Room Air 08/13/17 12:34 97 Room Air 08/13/17 12:22 97 Room Air 08/13/17 10:36 97 Room Air 08/13/17 08:56 97 Room Air 08/13/17 08:04 97 Room Air 08/13/17 07:54 Room Air 08/13/17 07:51 97 Room Air 08/13/17 07:00 98.0 96 18 130/87 (101) 95 Room Air 98.0 08/13/17 06:00 97 Room Air 08/13/17 03:56 19 97 Room Air 08/13/17 03:56 97 Room Air 08/13/17 03:00 97.8 94 18 126/83 (97) 96 Room Air 97.8 08/13/17 02:25 19 08/13/17 01:55 96 Room Air 08/13/17 00:49 19 08/12/17 23:49 18 97 Room Air 08/12/17 23:00 98.0 98 20 124/83 (97) 95 Room Air 98.0 08/12/17 21:43 20 97 Room Air 08/12/17 20:27 18 97 Room Air 08/12/17 20:00 Room Air 08/12/17 19:33 18 97 Room Air 08/12/17 19:00 97.4 110 20 122/69 (86) 95 Room Air 97.4 08/12/17 17:34 97 Room Air 08/12/17 16:37 97 Room Air 08/12/17 15:17 97 Room Air 08/12/17 15:00 98.3 105 18 134/92 (106) 95 Room Air 98.3 I & O Intake and Output 08/13/17 07:00 Intake Total 1820 ml Output Total 3100 ml Balance -1280 ml Intake Oral 1820 ml Output Urine Total 3100 ml PHYSICAL EXAM Physical Exam GEN.: mild distress. Alert and oriented. HEENT: Head is normocephalic, atraumatic NECK: Supple. LUNGS: Clear to auscultation. HEART: RRR, S1, S2 present. Peripheral pulses intact ABDOMEN: Soft, nontender. Positive bowel sounds. EXTREMITIES: TTP on lower extremities. NEUROLOGIC: Normal speech, normal tone PSYCHIATRIC: Normal affect, normal mood. SKIN: No ulcerations ASSESSMENT/PLAN Assessment/Plan ~RDS/Chronic Pain Syndrome- Continue with current pain management Possible discharge in 1-2 days Problems: (1) Reflex sympathetic dystrophy of both lower extremities (2) Chronic pain Problem Qualifiers (1) Chronic pain: Chronic pain type: chronic pain syndrome Qualified Codes: G89.4 - Chronic pain syndrome JADE SALINAS MD Aug 13, 2017 13:43
[2017-08-13 15:00] VITALS: BP 122/95
[2017-08-13] MEDS: HYDROCORTISONE 1% TOPICAL OINTMENT 30GM TUBE. TP PRN (17:06)
[2017-08-13 19:00] VITALS: BP 138/89
[2017-08-13] MEDS: AMITRIPTYLINE HCL 50 MG TABLET PO SCH (19:40)
[2017-08-13 23:00] VITALS: BP 135/87
[2017-08-14] MEDS: HYDROmorphone 2 MG/ML VIAL IV PRN ×11 (00:21→22:15)
[2017-08-14] MEDS: oxyCODONE IR 5 MG TABLET PO SCH ×6 (00:22→20:11)
[2017-08-14 03:00] VITALS: BP 144/87
[2017-08-14] MEDS: BENZOCAINE 20% TOPICAL AEROSOL SPRAY 57GM CAN. TP PRN ×4 (03:09→16:23)
[2017-08-14] MEDS: ALPRAZolam 0.5 MG TABLET PO PRN ×3 (03:18→22:19)
[2017-08-14] MEDS: CYCLOBENZAPRINE 10 MG TABLET. PO PRN ×3 (03:18→22:19)
[2017-08-14 06:50] VITALS: BP 133/78
[2017-08-14] MEDS: MULTIVITAMIN with MINERAL TABLET. PO SCH (08:31)
[2017-08-14] MEDS: DOCUSATE SODIUM 100 MG CAPSULE. PO SCH (08:31)
[2017-08-14] MEDS: OMEGA-3 FATTY ACIDS/FISH OIL 1,000 MG CAPSULE. PO SCH (08:31)
--- NOTE | 2017-08-14 10:20 | PDOC ---
SUBJECTIVE Subjective Patient seen and examined at bedside pain better at rest but when he puts pressure on it, it hurts OBJECTIVE Vital Signs Vital Signs Date Time Temp Pulse Resp B/P (MAP) Pulse Ox O2 Delivery O2 Flow Rate FiO2 08/14/17 09:35 Room Air 08/14/17 09:33 Room Air 08/14/17 09:20 Room Air 08/14/17 08:31 Room Air 08/14/17 07:27 Room Air 08/14/17 07:06 18 94 Room Air 08/14/17 06:50 97.8 100 18 133/78 (96) 94 Room Air 97.8 08/14/17 06:15 17 94 08/14/17 05:47 17 94 08/14/17 05:12 17 94 Room Air 08/14/17 05:11 17 94 Room Air 08/14/17 03:09 18 94 Room Air 08/14/17 03:00 98.1 111 20 144/87 (106) 93 Room Air 98.1 08/14/17 00:22 16 94 Room Air 08/14/17 00:21 16 94 Room Air 08/13/17 23:00 98.3 107 20 135/87 (103) 94 Room Air 98.3 08/13/17 21:36 17 97 Room Air 08/13/17 20:10 Room Air 08/13/17 19:40 19 97 Room Air 08/13/17 19:39 19 97 Room Air 08/13/17 19:00 98.2 112 20 138/89 (105) 94 Room Air 98.2 08/13/17 17:06 97 Room Air 08/13/17 17:06 97 Room Air 08/13/17 15:13 Room Air 08/13/17 15:00 98.0 114 22 122/95 (104) 97 Room Air 98.0 08/13/17 12:54 97 Room Air 08/13/17 12:34 97 Room Air 08/13/17 10:36 97 Room Air I & O Intake and Output 08/14/17 07:00 Intake Total 1350 ml Output Total 1501 ml Balance -151 ml Intake Oral 1350 ml Output Urine Total 1500 ml Stool Total 1 ml # Voids 2 PHYSICAL EXAM Physical Exam GEN.: mild distress. Alert and oriented. HEENT: Head is normocephalic, atraumatic NECK: Supple. LUNGS: Clear to auscultation. HEART: RRR, S1, S2 present. Peripheral pulses intact ABDOMEN: Soft, nontender. Positive bowel sounds. EXTREMITIES: TTP on lower extremities. NEUROLOGIC: Normal speech, normal tone PSYCHIATRIC: Normal affect, normal mood. SKIN: No ulcerations ASSESSMENT/PLAN Assessment/Plan ~RDS/Chronic Pain Syndrome- Continue with current pain management managing pain will be the biggest challenge Problems: JADE SALINAS MD Aug 14, 2017 10:20
[2017-08-14 10:48] VITALS: BP 151/80
[2017-08-14 14:28] VITALS: BP 152/96
[2017-08-14 19:21] VITALS: BP 155/95
[2017-08-14] MEDS: AMITRIPTYLINE HCL 50 MG TABLET PO SCH (20:13)
[2017-08-14 23:00] VITALS: BP 121/85
[2017-08-15] VITALS (7 sets, daily range): BP systolic 130–163; BP diastolic 80–103
[2017-08-15] MEDS: oxyCODONE IR 5 MG TABLET PO SCH ×6 (00:13→20:00)
[2017-08-15] MEDS: HYDROmorphone 2 MG/ML VIAL IV PRN ×10 (00:13→22:16)
[2017-08-15] MEDS: BENZOCAINE 20% TOPICAL AEROSOL SPRAY 57GM CAN. TP PRN ×5 (03:25→20:02)
[2017-08-15] MEDS: ALPRAZolam 0.5 MG TABLET PO PRN ×3 (06:15→20:01)
[2017-08-15] MEDS: CYCLOBENZAPRINE 10 MG TABLET. PO PRN ×3 (06:15→20:01)
[2017-08-15] MEDS: OMEGA-3 FATTY ACIDS/FISH OIL 1,000 MG CAPSULE. PO SCH (07:44)
[2017-08-15] MEDS: DOCUSATE SODIUM 100 MG CAPSULE. PO SCH (07:45)
[2017-08-15] MEDS: MULTIVITAMIN with MINERAL TABLET. PO SCH (07:45)
--- NOTE | 2017-08-15 14:44 | PDOC ---
SUBJECTIVE Subjective Patient seen and examined at bedside still has pain in his feet but better. OBJECTIVE Vital Signs Vital Signs Date Time Temp Pulse Resp B/P (MAP) Pulse Ox O2 Delivery O2 Flow Rate FiO2 08/15/17 14:39 Room Air 08/15/17 12:44 Room Air 08/15/17 12:44 Room Air 08/15/17 12:20 Room Air 08/15/17 11:44 Room Air 08/15/17 11:00 97.8 101 17 135/88 (104) 93 Room Air 97.8 08/15/17 10:25 Room Air 08/15/17 08:17 Room Air 08/15/17 07:45 Room Air 08/15/17 07:13 Room Air 08/15/17 06:50 98.0 94 18 130/80 (97) 94 Room Air 98.0 08/15/17 03:24 97.5 109 18 148/101 (117) 96 Room Air 97.5 08/14/17 23:00 97.5 73 18 121/85 (97) 95 Room Air 97.5 08/14/17 20:10 Room Air 08/14/17 19:21 98.1 114 18 155/95 (115) 93 Room Air 98.1 08/14/17 18:08 Room Air 08/14/17 16:23 Room Air 08/14/17 16:23 Room Air I & O Intake and Output 08/15/17 07:00 Intake Total 1460 ml Output Total 2250 ml Balance -790 ml Intake Oral 1460 ml Output Urine Total 2250 ml # Voids 1 # Bowel Movements 1 PHYSICAL EXAM Physical Exam GEN.: mild distress. Alert and oriented. HEENT: Head is normocephalic, atraumatic NECK: Supple. LUNGS: Clear to auscultation. HEART: RRR, S1, S2 present. Peripheral pulses intact ABDOMEN: Soft, nontender. Positive bowel sounds. EXTREMITIES: TTP on lower extremities. NEUROLOGIC: Normal speech, normal tone PSYCHIATRIC: Normal affect, normal mood. SKIN: No ulcerations ASSESSMENT/PLAN Assessment/Plan ASSESSMENT/PLAN Assessment/Plan ~RDS/Chronic Pain Syndrome- Uncontrolled pain will continue with IV dilaudid and PO pain medications Problems: JADE SALINAS MD Aug 15, 2017 14:44
[2017-08-15] MEDS: AMITRIPTYLINE HCL 50 MG TABLET PO SCH (20:01)
[2017-08-16] MEDS: oxyCODONE IR 5 MG TABLET PO SCH ×6 (00:24→20:19)
[2017-08-16] MEDS: BENZOCAINE 20% TOPICAL AEROSOL SPRAY 57GM CAN. TP PRN ×4 (00:25→17:31)
[2017-08-16] MEDS: HYDROmorphone 2 MG/ML VIAL IV PRN ×10 (00:25→22:03)
[2017-08-16 03:00] VITALS: BP 112/63
[2017-08-16] MEDS: CYCLOBENZAPRINE 10 MG TABLET. PO PRN ×2 (06:27→17:31)
[2017-08-16] MEDS: ALPRAZolam 0.5 MG TABLET PO PRN ×2 (06:27→15:43)
[2017-08-16 06:55] VITALS: BP 134/80
[2017-08-16] MEDS: DOCUSATE SODIUM 100 MG CAPSULE. PO SCH (07:18)
[2017-08-16] MEDS: MULTIVITAMIN with MINERAL TABLET. PO SCH (07:18)
[2017-08-16] MEDS: OMEGA-3 FATTY ACIDS/FISH OIL 1,000 MG CAPSULE. PO SCH (07:18)
--- NOTE | 2017-08-16 09:35 | PDOC ---
PROGRESS NOTES Chief Complaint Chief Complaint Reflex sympathetic dystrophy exacerbation. ASSESSMENT AND PAIN: 1. RSD ecaceration: still requiring copious amounts of IV dilaudid on top of home ocyIR 20 q4hrs. continue regimen. 2. Prophylaxis: lovenox 3. Obesity, BMI 37: discussed diet and lowering caloric intake, as his ability to exercise is limited History of Present Illness History of Present Illness still significant pain with walking. pain at rest better Vitals Vitals Vital Signs Date Time Temp Pulse Resp B/P (MAP) Pulse Ox O2 Delivery O2 Flow Rate FiO2 08/16/17 09:04 Room Air 08/16/17 06:55 98.0 99 20 134/80 (98) 95 98.0 Physical Exam General: Alert, Oriented X3, Cooperative, No acute distress Heart: Regular rate, No murmurs Lungs: Clear Abdomen: Normal bowel sounds, Soft, No tenderness Extremities: No clubbing, Other (L sole erythematous; mild pedal edema bilat) Skin: No rashes SKYLA ALEXIS MD Aug 16, 2017 09:35
[2017-08-16 11:18] VITALS: BP 155/89
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
[2017-08-16 14:36] VITALS: BP 117/84
[2017-08-16] MEDS: ENOXAPARIN 40 MG/0.4 ML SYRINGE. SQ SCH (17:32)
[2017-08-16 19:00] VITALS: BP 139/85
[2017-08-16] MEDS: AMITRIPTYLINE HCL 50 MG TABLET PO SCH (20:19)
[2017-08-16 23:00] VITALS: BP 132/86
[2017-08-17] MEDS: oxyCODONE IR 5 MG TABLET PO SCH ×7 (00:06→23:48)
[2017-08-17] MEDS: ALPRAZolam 0.5 MG TABLET PO PRN ×3 (00:13→16:16)
[2017-08-17] MEDS: HYDROmorphone 2 MG/ML VIAL IV PRN ×10 (00:13→23:48)
[2017-08-17] MEDS: CYCLOBENZAPRINE 10 MG TABLET. PO PRN ×3 (00:13→16:16)
[2017-08-17 03:00] VITALS: BP 141/84
[2017-08-17 07:00] VITALS: BP 148/105
[2017-08-17] MEDS: OMEGA-3 FATTY ACIDS/FISH OIL 1,000 MG CAPSULE. PO SCH (08:56)
[2017-08-17] MEDS: MULTIVITAMIN with MINERAL TABLET. PO SCH (08:56)
[2017-08-17] MEDS: DOCUSATE SODIUM 100 MG CAPSULE. PO SCH (08:57)
[2017-08-17 10:46] VITALS: BP 141/102
[2017-08-17 15:14] VITALS: BP 156/106
--- NOTE | 2017-08-17 16:01 | PDOC ---
PROGRESS NOTES Chief Complaint Chief Complaint Reflex sympathetic dystrophy exacerbation. ASSESSMENT AND PAIN: 1. RSD ecaceration: still requiring copious amounts of IV dilaudid on top of home oxyIR 20 q4hrs. continue regimen. 2. LE swelling: IV lasix x1 3. Prophylaxis: lovenox 4. Obesity, BMI 37: diet and exercise as teresita History of Present Illness History of Present Illness still significant pain with walking. pain at rest better Vitals Vitals Vital Signs Date Time Temp Pulse Resp B/P (MAP) Pulse Ox O2 Delivery O2 Flow Rate FiO2 08/17/17 15:14 98.3 121 17 156/106 (123) 93 Room Air 98.3 Physical Exam General: Alert, Oriented X3, Cooperative, No acute distress Heart: Regular rate, No murmurs Lungs: Clear Abdomen: Normal bowel sounds, Soft, No tenderness Extremities: No clubbing, Other (L sole erythematous; mild pedal edema bilat) Skin: No rashes SKYLA ALEXIS MD Aug 17, 2017 16:01
[2017-08-17] MEDS: ENOXAPARIN 40 MG/0.4 ML SYRINGE. SQ SCH (16:02)
[2017-08-17] MEDS: BENZOCAINE 20% TOPICAL AEROSOL SPRAY 57GM CAN. TP PRN (16:08)
[2017-08-17] MEDS ORDERED: FUROSEMIDE 20 MG/2 ML VIAL. IVP ONE (16:15)
[2017-08-17 19:53] VITALS: BP 133/94
[2017-08-17] MEDS: AMITRIPTYLINE HCL 50 MG TABLET PO SCH (21:09)
[2017-08-17 23:50] VITALS: BP 138/98
[2017-08-18] MEDS: HYDROmorphone 2 MG/ML VIAL IV PRN ×9 (03:15→23:38)
[2017-08-18 03:28] VITALS: BP 163/103
[2017-08-18 03:49] LABS: BASO # 0.1 x10^3/uL (0.0-0.2); BASO % 1 % (0-3); EOS % 5 % (0-3); HEMATOCRIT 41.4 % (39.0-53.0); HEMOGLOBIN 13.1 g/dL (13.0-17.5); LYMPH # 1.7 x10^3/uL (1.0-4.8); LYMPH % 22 % (24-48); MEAN CORPUSCULAR HEMOGLOBIN 27 pg (25-35); MEAN CORPUSCULAR HGB CONC 32 g/dL (31-37); MEAN CORPUSCULAR VOLUME 85 fL (79-100); MONO % 14 % (0-9); NEUT % 59 % (31-73); PLATELET COUNT 246 x10^3/uL (140-400); RED BLOOD COUNT 4.86 x10^6/uL (4.30-5.70); WHITE BLOOD COUNT 8.1 x10^3/uL (4.0-11.0)
[2017-08-18 04:10] LABS: ALBUMIN 2.8 g/dL (3.4-5.0); ALBUMIN/GLOBULIN RATIO 0.6 (1.0-1.7); CALCIUM 9.1 mg/dL (8.5-10.1); GFR 83.2; MAGNESIUM 2.2 mg/dL (1.8-2.4); POTASSIUM 4.2 mmol/L (3.5-5.1); TOTAL BILIRUBIN 0.3 mg/dL (0.2-1.0); TOTAL PROTEIN 7.3 g/dL (6.4-8.2)
[2017-08-18] MEDS: oxyCODONE IR 5 MG TABLET PO SCH ×6 (04:22→23:37)
[2017-08-18 07:07] VITALS: BP 150/99
[2017-08-18] MEDS: BENZOCAINE 20% TOPICAL AEROSOL SPRAY 57GM CAN. TP PRN ×3 (08:00→21:38)
[2017-08-18] MEDS: DOCUSATE SODIUM 100 MG CAPSULE. PO SCH (08:18)
[2017-08-18] MEDS: OMEGA-3 FATTY ACIDS/FISH OIL 1,000 MG CAPSULE. PO SCH (08:20)
[2017-08-18] MEDS: MULTIVITAMIN with MINERAL TABLET. PO SCH (08:20)
--- NOTE | 2017-08-18 09:20 | PDOC ---
PROGRESS NOTES Chief Complaint Chief Complaint Reflex sympathetic dystrophy exacerbation. ASSESSMENT AND PAIN: 1. RSD exacerbation: still requiring copious amounts of IV dilaudid on top of home oxyIR 20 q4hrs. continue regimen. 2. LE swelling: s/p IV lasix x1, no change. d/w him that this is most likelt due to inactivity. to bring walker to help him ambulate 3. Prophylaxis: lovenox 4. Obesity, BMI 37: diet and exercise as teresita History of Present Illness History of Present Illness c/o severe pain, incongruent with body language. very needy Vitals Vitals Vital Signs Date Time Temp Pulse Resp B/P (MAP) Pulse Ox O2 Delivery O2 Flow Rate FiO2 08/18/17 08:00 Room Air 08/18/17 07:07 98.0 103 19 150/99 (116) 94 98.0 Physical Exam General: Alert, Oriented X3, Cooperative, No acute distress Heart: Regular rate, No murmurs Lungs: Clear Abdomen: Normal bowel sounds, Soft, No tenderness Extremities: No clubbing, No edema, Other (no erythema) Skin: No rashes Labs LABS Laboratory Tests Test 08/18/17 03:10 08/18/17 03:39 White Blood Count 8.1 x10^3/uL (4.0-11.0) Red Blood Count 4.86 x10^6/uL (4.30-5.70) Hemoglobin 13.1 g/dL (13.0-17.5) Hematocrit 41.4 % (39.0-53.0) Mean Corpuscular Volume 85 fL (79-100) Mean Corpuscular Hemoglobin 27 pg (25-35) Mean Corpuscular Hemoglobin Concent 32 g/dL (31-37) Red Cell Distribution Width 15.0 % (11.5-14.5) Platelet Count 246 x10^3/uL (140-400) Neutrophils (%) (Auto) 59 % (31-73) Lymphocytes (%) (Auto) 22 % (24-48) Monocytes (%) (Auto) 14 % (0-9) Eosinophils (%) (Auto) 5 % (0-3) Basophils (%) (Auto) 1 % (0-3) Neutrophils # (Auto) 4.8 x10^3uL (1.8-7.7) Lymphocytes # (Auto) 1.7 x10^3/uL (1.0-4.8) Monocytes # (Auto) 1.1 x10^3/uL (0.0-1.1) Eosinophils # (Auto) 0.4 x10^3/uL (0.0-0.7) Basophils # (Auto) 0.1 x10^3/uL (0.0-0.2) Sodium Level 133 mmol/L (136-145) Potassium Level 4.2 mmol/L (3.5-5.1) Chloride Level 100 mmol/L (98-107) Carbon Dioxide Level 23 mmol/L (21-32) Anion Gap 10 (6-14) Blood Urea Nitrogen 18 mg/dL (8-26) Creatinine 1.0 mg/dL (0.7-1.3) Estimated GFR (Cockcroft-Gault) 83.2 BUN/Creatinine Ratio 18 (6-20) Glucose Level 95 mg/dL (70-99) Calcium Level 9.1 mg/dL (8.5-10.1) Magnesium Level 2.2 mg/dL (1.8-2.4) Total Bilirubin 0.3 mg/dL (0.2-1.0) Aspartate Amino Transf (AST/SGOT) 62 U/L (15-37) Alanine Aminotransferase (ALT/SGPT) 97 U/L (16-63) Alkaline Phosphatase 84 U/L (46-116) Total Protein 7.3 g/dL (6.4-8.2) Albumin 2.8 g/dL (3.4-5.0) Albumin/Globulin Ratio 0.6 (1.0-1.7) Glucose (Fingerstick) 98 mg/dL (70-99) SKYLA ALEXIS MD Aug 18, 2017 09:20
[2017-08-18 10:45] VITALS: BP 138/88
[2017-08-18] MEDS: ALPRAZolam 0.5 MG TABLET PO PRN ×3 (11:01→23:37)
[2017-08-18] MEDS: CYCLOBENZAPRINE 10 MG TABLET. PO PRN ×3 (11:01→23:37)
[2017-08-18 14:58] VITALS: BP 136/99
[2017-08-18] MEDS: ENOXAPARIN 40 MG/0.4 ML SYRINGE. SQ SCH (16:17)
[2017-08-18 19:51] VITALS: BP 144/96
[2017-08-18] MEDS: AMITRIPTYLINE HCL 50 MG TABLET PO SCH (21:20)
[2017-08-18 23:44] VITALS: BP 144/89
[2017-08-19] MEDS: HYDROmorphone 2 MG/ML VIAL IV PRN ×9 (01:54→22:09)
[2017-08-19 03:23] VITALS: BP 158/103
[2017-08-19] MEDS: oxyCODONE IR 5 MG TABLET PO SCH ×5 (04:01→19:51)
[2017-08-19] MEDS: BENZOCAINE 20% TOPICAL AEROSOL SPRAY 57GM CAN. TP PRN ×3 (04:03→22:08)
[2017-08-19 04:41] LABS: ALBUMIN 3.3 g/dL (3.4-5.0); ALBUMIN/GLOBULIN RATIO 0.7 (1.0-1.7); CALCIUM 9.2 mg/dL (8.5-10.1); CREATININE 1.1 mg/dL (0.7-1.3); GFR 74.5; POTASSIUM 4.4 mmol/L (3.5-5.1); TOTAL BILIRUBIN 0.3 mg/dL (0.2-1.0); TOTAL PROTEIN 7.9 g/dL (6.4-8.2)
[2017-08-19 07:00] VITALS: BP 138/81
[2017-08-19] MEDS: OMEGA-3 FATTY ACIDS/FISH OIL 1,000 MG CAPSULE. PO SCH (08:16)
[2017-08-19] MEDS: DOCUSATE SODIUM 100 MG CAPSULE. PO SCH (08:16)
[2017-08-19] MEDS: CYCLOBENZAPRINE 10 MG TABLET. PO PRN ×2 (08:16→22:08)
[2017-08-19] MEDS: ALPRAZolam 0.5 MG TABLET PO PRN ×2 (08:16→22:08)
[2017-08-19] MEDS: MULTIVITAMIN with MINERAL TABLET. PO SCH (08:17)
[2017-08-19 11:00] VITALS: BP 148/96
--- NOTE | 2017-08-19 13:58 | PDOC ---
PROGRESS NOTES Chief Complaint Chief Complaint Reflex sympathetic dystrophy exacerbation. ASSESSMENT AND PAIN: 1. RSD exacerbation: wean IV dilaudid (on top of home oxyIR 20 q4hrs). 2. LE swelling: lasix IV x1. d/w him that this is most likely due to inactivity. encouraged to ambulate or do arm exercises 3. Prophylaxis: lovenox 4. Obesity, BMI 37: diet and exercise as teresita 5. Dispo: home in AM History of Present Illness History of Present Illness wants IV dilaudid before walking. no new issues. wants to go home in AM Vitals Vitals Vital Signs Date Time Temp Pulse Resp B/P (MAP) Pulse Ox O2 Delivery O2 Flow Rate FiO2 08/19/17 11:53 22 94 Room Air 08/19/17 11:00 98.1 104 148/96 (113) 98.1 Physical Exam General: Alert, Oriented X3, Cooperative, No acute distress Heart: Regular rate, No murmurs Lungs: Clear Abdomen: Normal bowel sounds, Soft, No tenderness Extremities: No clubbing, No edema, Other (no erythema in feet) Skin: No rashes Labs LABS Laboratory Tests Test 08/19/17 03:05 Sodium Level 139 mmol/L (136-145) Potassium Level 4.4 mmol/L (3.5-5.1) Chloride Level 102 mmol/L (98-107) Carbon Dioxide Level 26 mmol/L (21-32) Anion Gap 11 (6-14) Blood Urea Nitrogen 16 mg/dL (8-26) Creatinine 1.1 mg/dL (0.7-1.3) Estimated GFR (Cockcroft-Gault) 74.5 BUN/Creatinine Ratio 15 (6-20) Glucose Level 98 mg/dL (70-99) Calcium Level 9.2 mg/dL (8.5-10.1) Total Bilirubin 0.3 mg/dL (0.2-1.0) Aspartate Amino Transf (AST/SGOT) 52 U/L (15-37) Alanine Aminotransferase (ALT/SGPT) 105 U/L (16-63) Alkaline Phosphatase 92 U/L (46-116) Total Protein 7.9 g/dL (6.4-8.2) Albumin 3.3 g/dL (3.4-5.0) Albumin/Globulin Ratio 0.7 (1.0-1.7) REISREALSKYLA MD Aug 19, 2017 13:58
[2017-08-19 15:00] VITALS: BP 139/95
[2017-08-19] MEDS: ENOXAPARIN 40 MG/0.4 ML SYRINGE. SQ SCH (16:43)
[2017-08-19 19:00] VITALS: BP 127/99
[2017-08-19] MEDS: AMITRIPTYLINE HCL 50 MG TABLET PO SCH (21:06)
[2017-08-19] MEDS: diphenhydrAMINE HCL 25 MG CAPSULE PO PRN (22:08)
[2017-08-19 23:28] VITALS: BP 141/96
[2017-08-20] MEDS: oxyCODONE IR 5 MG TABLET PO SCH ×5 (00:32→16:07)
[2017-08-20] MEDS: HYDROmorphone 2 MG/ML VIAL IV PRN ×6 (00:33→16:33)
[2017-08-20 03:00] VITALS: BP 138/99
[2017-08-20 07:00] VITALS: BP 124/86
[2017-08-20] MEDS: BENZOCAINE 20% TOPICAL AEROSOL SPRAY 57GM CAN. TP PRN (09:00)
[2017-08-20] MEDS: MULTIVITAMIN with MINERAL TABLET. PO SCH (09:00)
[2017-08-20] MEDS: OMEGA-3 FATTY ACIDS/FISH OIL 1,000 MG CAPSULE. PO SCH (09:00)
[2017-08-20] MEDS: DOCUSATE SODIUM 100 MG CAPSULE. PO SCH (09:00)
[2017-08-20] MEDS: ALPRAZolam 0.5 MG TABLET PO PRN (09:00)
[2017-08-20 10:44] VITALS: BP 139/91
[2017-08-20 15:00] VITALS: BP 157/99
[2017-08-20] MEDS: ENOXAPARIN 40 MG/0.4 ML SYRINGE. SQ SCH (16:09)
--- NOTE | 2017-08-21 19:02 | DS ---
DATE OF DISCHARGE: 08/20/2017 CHIEF COMPLAINT: Reflex sympathetic dystrophy exacerbation. HOSPITAL COURSE: The patient is a 37-year-old gentleman suffering from reflex sympathetic dystrophy with severe pain in his feet and legs, well known to our service with multiple previous admissions for exacerbation in his pain. He once again presented with typical symptoms of pain, redness and swelling in his feet. He was maintained on his home medications of oxycodone 20 q.4h. and added Dilaudid for pain control. When symptoms abated on 08/19/2017, plans for discharge were made. The patient was able to ambulate with rolling walker. PHYSICAL EXAMINATION: VITAL SIGNS: Blood pressure of 139/91, heart rate of 92, respiratory rate at 20. He is afebrile. GENERAL: This is an obese 37-year-old gentleman, alert and oriented, in no acute distress. LUNGS: Clear. HEART: Regular rate and rhythm. ABDOMEN: Has positive bowel sounds. EXTREMITIES: Show 1+ edema in the dorsi of his feet and ankles bilaterally, no erythema in his feet. DISCHARGE DIAGNOSES: Reflex sympathetic dystrophy pain exacerbation. DISCHARGE DISPOSITION: To home. DISCHARGE CONDITION: Improved. DISCHARGE MEDICATIONS: Please refer to MAR. DISCHARGE INSTRUCTIONS: The patient will follow up with PCP in 1-2 weeks. SKYLA ALEXIS MD DR: UR/nts JOB#: [id number] / [id number]
== END 2017-08-20 18:33 | disposition home or self-care (01) | DRG 74 ==
LOC: ER 07:33 → 6 SOUTH 08:34
PROVIDERS: ADMIT Internal Medicine Hematology & Oncology; ATTEND Internal Medicine Hematology & Oncology
DX: G90.523 Complex regional pain syndrome I of lower limb, bilateral (principal); B35.1 Tinea unguium; E66.9 Obesity, unspecified; G89.4 Chronic pain syndrome; Z68.37 Body mass index [BMI] 37.0-37.9, adult; G35 Multiple sclerosis; K59.00 Constipation, unspecified; T75.4XXA Electrocution, initial encounter; W86.8XXA Exposure to other electric current, initial encounter; Z88.6 Allergy status to analgesic agent; Z88.8 Allergy status to other drugs, medicaments and biological substances; Z68.33 Body mass index [BMI] 33.0-33.9, adult
CPT/HCPCS: 36415; 80053; 81001; 82962; 83735; 85025; 85027; 87324; 96374; 96375; J1170; J1650; J2405; Q0163; 99285-25